=== PATIENT | female | born 1965 | race Caucasian/White ===

== ENCOUNTER → 2019-11-15 | Outpatient (CLI) | payer SELFPAY | PROVIDERS: Family Provider Family Medicine; Visit Provider Psychiatry & Neurology Neurology | DX: F41.1 Generalized anxiety disorder (principal); F33.2 Major depressive disorder, recurrent severe without psychotic features; F43.9 Reaction to severe stress, unspecified; F10.20 Alcohol dependence, uncomplicated ==

== ENCOUNTER → 2020-02-19 15:00 | Outpatient (BNVA) | payer MEDICARE, MEDICAID, SELFPAY | PROVIDERS: Family Provider Family Medicine; Visit Provider Psychiatry & Neurology Psychiatry | DX: F10.20 Alcohol dependence, uncomplicated (principal); F33.2 Major depressive disorder, recurrent severe without psychotic features; F41.1 Generalized anxiety disorder | CPT/HCPCS: 99204 ==

== ENCOUNTER → 2020-03-27 08:57 | Outpatient (BNVA) | payer MEDICARE, MEDICAID, SELFPAY | PROVIDERS: Family Provider Family Medicine; Visit Provider Psychiatry & Neurology Psychiatry | DX: F41.1 Generalized anxiety disorder (principal); F33.2 Major depressive disorder, recurrent severe without psychotic features; F10.20 Alcohol dependence, uncomplicated | CPT/HCPCS: 99213 ==

== ENCOUNTER 2020-04-13 20:28 | Emergency (ER) | payer MEDICARE, MEDICAID, SELFPAY ==
[2020-04-13 20:40] VITALS: BP 134/88; PULSE 92; RESP 14; TEMP 36.6; O2SAT 94; BMI 23.2
--- NOTE | 2020-04-13 21:26 | ED_ITS ---
HPI - Fall General: Chief Complaint: Fall Stated Complaint: fall/nose injury Time Seen by Provider: 04/13/20 21:22 History of Present Illness: HPI Narrative: Patient complains about pain to her nose with swelling. Onset (ago): hour(s) Fall from: standing Fall witnessed: yes, by bystander Place fall occurred: home Loss of consciousness: None Associated symptoms-after fall: Reports no associated symptoms; Denies abdominal pain, chest pain or headache(s) Review of Systems Const: Denies: fever(s), chills or body aches Eyes: Denies: change in vision or blurry vision ENMT: Reports: nasal congestion and other (Patient is nose hurt and has an abrasion to her nose this happens after a fall); Denies: throat pain Card: Denies: chest pain or dyspnea on exertion Resp: Denies: dyspnea, productive cough or non-productive cough GI: Denies: abdominal pain, nausea or vomiting Musc: Denies: extremity pain Skin/Breast: Denies: rash Neuro: Denies: headache(s) Psych: Denies: anxiety or depression Von/Lymph: Denies: easy bruising PFS ED PFSH: Medical History (Updated 04/13/20 @ 21:26 by YURI Barger) Dyspareunia 05/2019--->Pain with intercourse as well as decreased libido-- She is on several medications which can lead to vaginal dryness but certainly her age can be the source of the discomfort. Lubricants do help and she may continue using the [place] until further notice. We did discuss the use of vaginal estrogen and she has been on this before and is not opposed to restarting today. Rx: Estradiol 0.01% cream sent by Emiliana Graves for 340b--managed by myself She is instructed to use 2 g in the vagina every night for 7 nights then decreased to 1 g in the vagina 3 times a week. This will take 10-12 weeks of therapy before she starts to see any improvement and we will reevaluate the low libido at that time. - Large improvement in pain with estradiol vaginal cream. She has refills. Encouraged continued use 3x/week; coconut oil for lubricant and additional moisture. RTC: Nov 2019 for [employer] Surgical History (System 12/13/19 @ 12:43 by Reena Sheth) History of carpal tunnel surgery of left wrist (~04/2018) History of carpal tunnel surgery of right wrist (~01/2019) History of endometrial ablation (~05/13/09) 05/13/2009. Dysfunctional uterine bleeding. Jayne HTA. [facility] [place]. [place]. Reyes. History of foot surgery (~1977) Right foot, Repaired ligaments and tendons after foot cut. History of oophorectomy (~2008) Left History of salpingectomy (~05/13/09) Left ovarian cyst. Dyspareunia. Laparoscopic LSO, ALEM. [facility] [place]. Dr. Reyes History of spinal fusion History of tubal ligation (~1994) Hx of dilation and curettage (~05/13/09) Dysfunctional uterine bleeding. Hysteroscopy D&C. [facility] [place]. Dr. Reyes. 1991. D&C. Family History (System 12/13/19 @ 12:43 by Reena Sheth) Father Lung cancer Diabetes Heart disease Mother Breast cancer Hypertension Brother Hypertension Sister Hypertension Social History (System 12/13/19 @ 12:43 by Reena Sheth) Smoking and tobacco status: current every day smoker cigarettes Packs smoked per day: 1 [ Other cigarette details: Started smoking at age 12 ] Alcohol intake: current Desire information about substance/drug rehabilitation?: No (History of Cocaine use) Current occupational status: disabled Additional social history: Poorly balanced diet Physical Exam Const: COMMON NORMALS: no acute distress, average body habitus and patient oriented x3 HENMT: COMMON NORMALS: normocephalic HEAD & SCALP: normal to inspection and normocephalic FACE & SINUS: normal facial exam NOSE: Abnormal external nose present (Has an abrasion to left side of her nose) nasal deviation to the right, nasal tenderness, nasal abrasion and nasal swelling; septum not normal Eye: COMMON NORMALS: conjunctivae normal GENERAL EYE: appearance normal, both eyes and all related structures CONJUNCTIVA: Yes conjunctivae normal Neck/C-Spine: COMMON NORMALS: no JVD Chest: COMMONS NORMALS: normal inspection of the chest Resp: COMMON NORMALS: normal respiratory effort and clear to auscultation bilaterally AUSCULTATION: clear to auscultation bilaterally Cardio: COMMON NORMALS: no JVD, regular rate and regular rhythm RATE: regular rate RHYTHM: regular rhythm GI: COMMON NORMALS: Normal to inspection, nondistended, normoactive bowel sounds present Extremity: COMMON NORMALS: normal to inspection and full ROM Neuro: COMMON NORMALS: patient oriented x3 Course Vital Signs: Vital signs: Vital Signs Temperature 97.8 F 04/13/20 20:40 Pulse Rate 92 04/13/20 20:40 Respiratory Rate 14 04/13/20 20:40 Blood Pressure 134/88 04/13/20 20:40 Pulse Oximetry 94 04/13/20 20:40 Discharge Plan Discharge Patient Disposition: Home, Self-Care Clinical Impression: Contusion of nose Qualifiers: Encounter type: initial encounter Qualified Code(s): S00.33XA - Contusion of nose, initial encounter Condition: Stable Prescriptions: No Action Chantix 1 mg tablet 1 mg PO BID RF: 0 albuterol sulfate [ProAir HFA] 90 mcg/actuation HFA aerosol inhaler 2 puff INHALATION Q4H PRNRF: 0 Combivent Respimat 20-100 mcg/actuation mist 1 puff INHALATION BID RF: 0 duloxetine 30 mg capsule,delayed release(DR/EC) 30 mg PO DAILY Qty: 30 RF: 2 trazodone 100 mg tablet 200 mg PO .HS Qty: 60 RF: 2 estradiol 0.01 % (0.1 mg/gram) cream 1 gm VAGINAL .three times weekly 30 Days Qty: 42.5 RF: 2 Discharge Orders: Discharge Order (Routine); Ordered 04/13/20 Ordered By: Chuy Osborn Referrals: Kiko Wu MD [Primary Care Provider] - Discharge Diet: Usual diet Discharge Activity: Increase activity as tolerated Patient Instructions: Nasal Fracture (ED) Activity Restrictions/Additional Instructions: Can use Demetrius-Synephrine nose spray to help with the swelling you have ice the nose down follow-up with ear nose throat doc in 1 to 2 weeks if you want to nose to be reexamined and possibly strained out Coding Level of Care Code ED Parts Department Supervisor for [facility]
[2020-04-13 21:40] VITALS: BP 151/84; PULSE 91; RESP 14; O2SAT 98
== END 2020-04-13 21:40 | disposition home or self-care (01) ==
PROVIDERS: Emergency Provider Nurse Practitioner Family; PCP Family Medicine
DX: S00.33XA Contusion of nose, initial encounter (principal); W19.XXXA Unspecified fall, initial encounter; F17.210 Nicotine dependence, cigarettes, uncomplicated
CPT/HCPCS: 12345; 99281

== ENCOUNTER 2020-04-16 10:29 | Outpatient (CLI) | payer MEDICARE, MEDICAID, SELFPAY ==
[2020-04-16 11:13] LABS: Basophils % 0.6 %; Eosinophils # 0.1 10^3/uL (0.0-0.8); Eosinophils % 1.4 %; Hematocrit 48.1 % (37.0-47.0); Hemoglobin 15.5 g/dL (11.5-15.3); Lymphocytes # 2.3 10^3/uL (0.8-4.8); Lymphocytes % 31.5 %; Mean Corpuscular HGB Conc 32.2 g/dL (30.0-36.0); Mean Corpuscular Hemoglobin 28.9 pg (28.0-34.0); Mean Corpuscular Volume 89.6 fL (81-99); Mean Platelet Volume 9.3 fL (7.4-10.4); Monocytes # 0.7 10^3/uL (0.2-0.9); Monocytes % 9.9 %; Neutrophils # 4.1 10^3/uL (1.8-7.7); Neutrophils % 56.5 %; Nucleated Red Blood Cells % 0 %; Platelet Count 265 10^3/cmm (130-400); Red Blood Count 5.37 10^6/uL (4.1-5.3); Red Cell Distribution Width 13.7 % (12.1-15.1); White Blood Count 7.3 10^3/uL (4.0-10.0)
[2020-04-16 11:15] LABS: Anion Gap 17.4 (5-19); Blood Urea Nitrogen 9 mg/dL (6-20); Calcium 9.9 mg/dL (8.5-10.5); Carbon Dioxide 23 mmol/L (22-29); Chloride 106 mmol/L (98-107); Glomerular Filtration Rate 87.2 mL/min (90-130); Glucose 108 mg/dL (65-115); Osmolality Calculated 291 mOsm/kg (285-295); Potassium 4.4 mmol/L (3.5-5.1); Sodium 142 mmol/L (136-145)
== END 2020-04-16 10:30 | disposition home or self-care (01) ==
LOC: RT 10:35
PROVIDERS: PCP Family Medicine; Visit Provider Specialist
DX: Z01.810 Encounter for preprocedural cardiovascular examination (principal)
CPT/HCPCS: 80048; 85025

== ENCOUNTER 2020-06-01 08:12 | Day surgery (SDC) | payer MEDICARE, MEDICAID, SELFPAY ==
[2020-05-28 10:16] VITALS: BMI 23.2
--- NOTE | 2020-06-01 08:27 | P.ANESASSM_ITS ---
Pre-Anesthetic Assessment Pre-Anesthetic Assessment: Height/Weight: Height 1.55 m Weight 55.792 kg Preop Diagnosis: screening Proposed Procedure: Operation Date: 06/01/20 09:00 Proposed Procedures p Colonoscopy/30839 Z12.11(Not Applicable) - Hai Ibrahim MD Familial anesthetic complications: none Was Beta Roberto taken within 24 hours: N/A Social: Social History: Alcohol (3-4 drinks a day) and Tobacco Packs per day: 1-1.5 Exam: Pre-Anes Outpt Exam: alert, oriented x 3, clear to auscultation bilaterally and regular rate & rhythm Airway: Submandibular: WNL Cervical ROM: WNL MP: 1 Dentition: False Pulmonary: Pulmonary: COPD and Sleep apnea CV/HEM: CV/HEM: None reported : : None reported Hepatic: Hepatic: None reported GI: GI: None reported Metabolic: Metabolic: Thyroid (nodules) Musc/skel: Musc/skel: Fibromyalgia, Lower Back Pain and OA/DJD Neuropsych: Neuropsych: Anxiety and Depression Anesthetic Plan: ASA status: 3 Anesthesia: MAC Risk of > 500 ml blood loss (7ml/kg in children): No PFSH Anesthesia PFSH: Medical History Chronic back pain Dyspareunia Surgical History History of carpal tunnel surgery of left wrist (~04/2018) History of carpal tunnel surgery of right wrist (~01/2019) History of endometrial ablation (~05/13/09) 05/13/2009. Dysfunctional uterine bleeding. [place] [facility] [place]. History of foot surgery (~1977) Right foot, Repaired ligaments and tendons after foot cut. History of oophorectomy (~2008) Left History of salpingectomy (~05/13/09) Left ovarian cyst. Dyspareunia. Laparoscopic LSO, ALEM. [facility]. Dr. Reyes History of spinal fusion History of tubal ligation (~1994) Hx of dilation and curettage (~05/13/09) Dysfunctional uterine bleeding. [place]steroscopy [place] [facility] [place]. D&C. Family History Father Lung cancer Diabetes Heart disease Mother Breast cancer, Onset Age: 56 Hypertension Brother Hypertension Sister Hypertension Social History (Updated 05/14/20 @ 14:24 by RICH Kim) Smoking and tobacco status: current every day smoker cigarettes Packs smoked per day: 1 [ Other cigarette details: Started smoking at age 12 ] Alcohol intake: current Desire information about substance/drug rehabilitation?: No (History of Cocaine use) History of recent travel: No Additional social history: Poorly balanced diet Data Anesthesia Cardiac Studies: No Data to Display
[2020-06-01 08:31] VITALS: BP 134/87; PULSE 86; RESP 18; TEMP 36.7; O2SAT 98
[2020-06-01] MEDS: sodium chloride 0.9% 1,000 ML 30 ML IV (08:35)
--- NOTE | 2020-06-01 09:27 | W.PM.OPSUD ---
Surgery/Procedure H&P Update DATE OF PROCEDURE: June 01, 2020 DATE H&P PERFORMED: 05/14/20 PREOP DIAGNOSIS: screening PLANNED PROCEDURE: Operation Date: 06/01/20 09:00 Proposed Procedures p Colonoscopy/24390 Z12.11(Not Applicable) - Hai Ibrahim MD
[2020-06-01 09:53] VITALS: BP 112/84; PULSE 78; RESP 12; TEMP 36.1; O2SAT 98
--- NOTE | 2020-06-01 09:55 | ANE.PACU2 ---
Inpatient post-anesthesia follow up: Airway intact: Yes Vital signs: Temperature 98.1 F Pulse Rate 86 Respiratory Rate 18 Blood Pressure 134/87 Pulse Oximetry 98 Oxygen Delivery Me thod Room Air Oxygen Flow Rate Fraction of Inspir ed Oxygen Hydration adequate: Yes Nausea and vomiting: No Pain level: 1 Mental status: Baseline
[2020-06-01 10:11] VITALS: BP 126/74; PULSE 76; RESP 16; O2SAT 98
== END 2020-06-01 10:25 | disposition home or self-care (01) ==
PROVIDERS: PCP Family Medicine; Visit Provider Internal Medicine
PROC: 0DJD8ZZ Inspection of Lower Intestinal Tract, Via Natural or Artificial Opening Endoscopic (ICD-10-PCS; CPT 45378; principal; 2020-06-01 09:00)
DX: Z12.11 Encounter for screening for malignant neoplasm of colon (principal); D12.2 Benign neoplasm of ascending colon; D12.4 Benign neoplasm of descending colon; F17.210 Nicotine dependence, cigarettes, uncomplicated
CPT/HCPCS: 12345; 45385; 88305; J2704; J7030

== ENCOUNTER → 2020-06-18 07:47 | Outpatient (BNVA) | payer MEDICARE, MEDICAID, SELFPAY | PROVIDERS: PCP Family Medicine; Visit Provider Psychiatry & Neurology Psychiatry | DX: F41.1 Generalized anxiety disorder (principal); F33.2 Major depressive disorder, recurrent severe without psychotic features; F10.20 Alcohol dependence, uncomplicated | CPT/HCPCS: 99213 ==

== ENCOUNTER 2020-09-07 14:45 | Outpatient (CLI) | payer MEDICARE, MEDICAID, SELFPAY ==
--- NOTE | 2020-09-07 14:50 | MR_ITS ---
WS: [id number] MRI LUMBAR SPINE NONCONTRAST HISTORY: Low back pain. COMPARISON: 01/06/2010. TECHNIQUE: Sagittal and axial multisequence imaging is submitted. Posterior fusion hardware at 3 consecutive levels in the cervical spine. No cord compression. Disc pr otrusions at T6-7 and T7-8. Mild straightening of the normal lumbar lordosis. 2 mm retrolisthesis of L2. Moderate disc space narr owing and desiccation at L2-3 has mildly progressed. No acute marrow edema or fracture. Mild disc desiccation at the remaining levels. Conus terminates normally at L1-2 disc level. L1-L2: Normal. L2-L3: Diffuse annular disc bulging and a central disc protrusion. Small vertebral body osteophytes. Moderate bilateral foraminal stenosis and mild central stenosis. Fluid in the facet joints. L3-L4: Diffuse annular disc bulging with mild facet and ligamentum flavum hypertrophy. Moderate bilat eral foraminal stenosis due to the disc bulging and facet disease. L4-L5: Mild annular disc bulging with moderate facet and ligamentum flavum hypertrophy. Moderate cent ral, subarticular recess and mild bilateral foraminal narrowing. L5-S1: Mild annular disc bulging with mild encroachment into the subarticular recesses. Visualized retroperitoneum is negative. MR/MR lumbar spine wo con* [id number] IMPRESSION: 1. Moderate progression of degenerative disc disease and spondylosis since 201 0. 2. Moderate bilateral foraminal stenosis and mild central stenosis at L2-3 wit h a central disc protrusion. 3. Moderate bilateral foraminal stenosis at L3-4. 4. Moderate central, bilateral subarticular recess and mild foraminal stenosis at L4-5. 5. No acute fractures. 6. Additional central disc protrusions at T6-7 and T7-8.
--- NOTE | 2020-09-07 14:50 | XR_ITS ---
WS: [id number] LATERAL LUMBAR SPINE: 3 view. Lateral radiographs are performed in upright neutral, flexion and extension to the patient's toleranc e. HISTORY: LOW BACK PAIN COMPARISON: 05/29/2019 2 to 3 mm retrolisthesis of L2 and L3. No change with flexion or extension. Moderate to severe disc s pace narrowing and desiccation at L2-3. No fractures. Mild osteopenia. Facet joint arthritis is moder ate at L4-5 and L5-S1. Mild atherosclerosis aorta. XR/XR lumbar spine f/e only [id number] IMPRESSION: 1. No lumbar spine instability. 2. Moderate to severe degenerative disc disease at L2-3.
== END 2020-09-07 14:46 | disposition home or self-care (01) ==
LOC: RADWPI 14:48
PROVIDERS: PCP Family Medicine; Visit Provider Nurse Practitioner
DX: M54.5 Low back pain (principal); M48.061 Spinal stenosis, lumbar region without neurogenic claudication; M51.36 Other intervertebral disc degeneration, lumbar region; M47.819 Spondylosis without myelopathy or radiculopathy, site unspecified; M51.24 Other intervertebral disc displacement, thoracic region
CPT/HCPCS: 72120; 72148

== ENCOUNTER 2020-09-14 20:00 | Outpatient (CLI) | payer MEDICARE, MEDICAID, SELFPAY | END 2020-09-14 20:01 | disposition home or self-care (01) | LOC: SLEEP 09-15 09:45 | PROVIDERS: PCP Family Medicine; Visit Provider Nurse Practitioner Family | DX: G47.33 Obstructive sleep apnea (adult) (pediatric) (principal); R40.0 Somnolence | CPT/HCPCS: 95810 ==

== ENCOUNTER 2020-10-23 08:06 | Outpatient (CLI) | payer MEDICARE, MEDICAID, SELFPAY ==
--- NOTE | 2020-10-23 08:08 | US_ITS ---
WS: [id number] ULTRASOUND THYROID TECHNIQUE: Ultrasound of the thyroid. CLINICAL INFORMATION: MULTIPLE THYROID NODULES COMPARISON: September 10, 2019 FINDINGS: Thyroid: Right and left thyroid lobes are normal in size and echotexture. Multiple bilateral thyroid nodules similar in appearance to the prior examination. Incidental colloid cysts. Solid right lateral inferior thyroid nodule measuring 9.2 x 7.4 x 9.4 mm. This is new or more promine nt compared to previous. Remainder of the nodules are unchanged. Right thyroid lobe: 4.6 cm x 1.7 cm x 2.4 cm Left thyroid lobe: 4.8 cm x 1.6 cm x 1.6 cm. Isthmus: 0.5 mm. Cervical lymphadenopathy: None. US/US thyroid [id number] IMPRESSION: 1. Solid right inferior thyroid nodule measuring 9.2 x 7.4 x 9.4 mm is new or more prominent compared to previous. 2. Remainder of the small bilateral nodules are unchanged. Recommend continued annual surveillance.
== END 2020-10-23 08:07 | disposition home or self-care (01) ==
LOC: US 08:07
PROVIDERS: PCP Family Medicine; Visit Provider Nurse Practitioner Family
DX: E04.2 Nontoxic multinodular goiter (principal)
CPT/HCPCS: 76536

== ENCOUNTER 2020-12-13 14:10 | Emergency (ER) | payer MEDICARE, MEDICAID, SELFPAY ==
[2020-12-13 14:19] VITALS: BP 137/76; PULSE 80; RESP 14; TEMP 36.8; O2SAT 95; BMI 22.6
--- NOTE | 2020-12-13 14:30 | XRR_ITS ---
PROCEDURE INFORMATION: Exam: XR Right Hand Exam date and time: 12/13/2020 2:41 PM Age: 55 years old Clinical indication: Injury or trauma; Other: Cut; Laceration; Finger; Right; Thumb; Additional info: Cut thumb TECHNIQUE: Imaging protocol: XR Right hand. Views: 3 or more views. COMPARISON: No relevant prior studies available. FINDINGS: Bones/joints: Negative for acute bony abnormality. Soft tissues: Negative for soft tissue metallic foreign bodies are seen in the thumb. Mild soft tissue effusion is present in the ventral and distal aspect of the thumb. XR/XR hand RT min 3V* [id number] IMPRESSION: 1. No acute bone abnormality. 2. Negative for soft tissue foreign body in the thumb 3. Mild soft tissue edema in the thumb
--- NOTE | 2020-12-13 14:35 | W.ED.WOUNDLC ---
HPI - Wound/Laceration General: Chief Complaint: Wound/Laceration Stated Complaint: R THUMB LAC W/KNIFE Time Seen by Provider: 12/13/20 14:18 History of Present Illness: HPI narrative: Patient cut right thumb with a potato slicer at 0 800 this morning was able to finally get a ride into the ER. Bleeding is stopped Onset (ago): hour(s) Extremity Location: Right: hand Place: home Patient tetanus UTD: Yes Context: accidental Associated symptoms: Reports no associated symptoms; Denies chills or fever(s) Review of Systems Const: Denies: fever(s) or chills Skin/Breast: Reports: other (Laceration right thumb) Psych: Denies: anxiety PFSH ED PFSH: Medical History Chronic back pain Dyspareunia Surgical History History of carpal tunnel surgery of left wrist (~04/2018) History of carpal tunnel surgery of right wrist (~01/2019) History of endometrial ablation (~05/13/09) 05/13/2009. Dysfunctional uterine bleeding. [place]ne [place] [facility] [place]. History of foot surgery (~1977) Right foot, Repaired ligaments and tendons after foot cut. History of oophorectomy (~2008) Left History of salpingectomy (~05/13/09) Left ovarian cyst. Dyspareunia. Laparoscopic LSO, ALEM. [facility]. Dr. Reyes History of spinal fusion History of tubal ligation (~1994) Hx of dilation and curettage (~05/13/09) Dysfunctional uterine bleeding. [place]steroscopy [place] [facility] [place]. [place]. D&C. Family History Father Lung cancer Diabetes Heart disease Mother Breast cancer, Onset Age: 56 Hypertension Brother Hypertension Sister Hypertension Social History (Updated 05/14/20 @ 14:[address]) Smoking and tobacco status: current every day smoker cigarettes Packs smoked per day: 1 [ Other cigarette details: Started smoking at age 12 ] Alcohol intake: current Desire information about substance/drug rehabilitation?: No (History of Cocaine use) History of recent travel: No Current gender identity: Female Additional social history: Poorly balanced diet Physical Exam Const: COMMON NORMALS: no acute distress Psych: COMMON NORMALS: mental status grossly normal Skin: OTHER: Right thumb with a laceration to the corner nailbed on the lateral aspect and into the fat pad of the thumb cut is well aligned and together no active bleeding Procedures Laceration Laceration 1: Site: hand Side (If applicable): right Size (cm): 3 Description: irregular and clean Depth: simple, single layer Pre-repair: wound explored Skin layer closed with: other (Skin adhesive and Steri-Strips) Course Vital Signs: Vital signs: Vital Signs Temperature 98.2 F 12/13/20 14:19 Pulse Rate 80 12/13/20 14:19 Respiratory Rate 14 12/13/20 14:19 Blood Pressure 137/76 12/13/20 14:19 Pulse Oximetry 95 12/13/20 14:19 Discharge Plan Discharge Condition: Good Prescriptions: No Action lisinopril 10 mg tablet 10 mg PO DAILY RF: 0 albuterol sulfate [ProAir HFA] 90 mcg/actuation HFA aerosol inhaler 2 puff INHALATION Q4H PRN (Reason: Shortness Of Breath Or Wheezing) RF: 0 Combivent Respimat 20-100 mcg/actuation mist 1 puff INHALATION BID RF: 0 duloxetine 60 mg capsule,delayed release(DR/EC) 60 mg PO DAILY Qty: 30 RF: 2 trazodone 100 mg tablet 200 mg PO .HS Qty: 60 RF: 2 estradiol 0.01 % (0.1 mg/gram) cream 1 gm VAGINAL .three times weekly 30 Days Qty: 42.5 RF: 2 Coding Level of Care Code ED Regional Construction Manager for [facility] Thomson
== END 2020-12-13 15:02 | disposition home or self-care (01) ==
PROVIDERS: Emergency Provider Nurse Practitioner Family; PCP Family Medicine
DX: S61.111A Laceration without foreign body of right thumb with damage to nail, initial encounter (principal); W26.0XXA Contact with knife, initial encounter; Y92.019 Unspecified place in single-family (private) house as the place of occurrence of the external cause
CPT/HCPCS: 12002; 12345; 73130; 99281; 99282

== ENCOUNTER → 2020-12-15 09:17 | Outpatient (BNVA) | payer MEDICARE, MEDICAID, SELFPAY | PROVIDERS: PCP Family Medicine; Visit Provider Psychiatry & Neurology Psychiatry | DX: F41.1 Generalized anxiety disorder (principal); F33.2 Major depressive disorder, recurrent severe without psychotic features; F10.20 Alcohol dependence, uncomplicated | CPT/HCPCS: 99214 ==

== ENCOUNTER 2020-12-17 15:07 | Emergency (ER) | payer MEDICARE, MEDICAID, SELFPAY ==
[2020-12-17 15:16] VITALS: BP 183/94; PULSE 77; RESP 18; TEMP 36.7; O2SAT 98; BMI 22.8
--- NOTE | 2020-12-17 15:23 | ED_ITS ---
HPI - Recheck/Abnormal Lab/Rx General: Chief Complaint: Extremity Injury, Upper Stated Complaint: Rt hand lac Time Seen by Provider: 12/17/20 15:19 Source: patient Mode of arrival: ambulatory Limitations: no limitations History of Present Illness: HPI narrative: Patient is a 55-year-old female presents to ED today for evaluation of her left thumb laceration that she sustained 4 days ago after cutting it on a potato slicer. Patient was seen here at our facility and had the laceration glued and Steri-Stripped. She states she is concerned because her Steri-Strips fell off. She has not had any redness or discharge or increased pain. MD complaint: wound re-check and delayed primary closure Onset/Timin Initial visit (ago): day(s) Returns today for: wound recheck Associated symptoms: none Review of Systems Skin/Breast: Reports: other (laceration to R thumb) Neuro: Denies: numbness in extremities or sensory changes PFS ED PFSH: Medical History (Updated 12/17/20 @ 15:24 by MACO Santizo) Chronic back pain Dyspareunia Surgical History History of carpal tunnel surgery of left wrist (~04/2018) History of carpal tunnel surgery of right wrist (~01/2019) History of endometrial ablation (~05/13/09) 05/13/2009. Dysfunctional uterine bleeding. [place] [facility] [place]. History of foot surgery (~1977) Right foot, Repaired ligaments and tendons after foot cut. History of oophorectomy (~2008) Left History of salpingectomy (~05/13/09) Left ovarian cyst. Dyspareunia. Laparoscopic LSO, ALEM. [facility]. Dr. Reyes History of spinal fusion History of tubal ligation (~1994) Hx of dilation and curettage (~05/13/09) Dysfunctional uterine bleeding. Hysteroscopy [place] [facility] [place]. [place]. D&C. Family History Father Lung cancer Diabetes Heart disease Mother Breast cancer, Onset Age: 56 Hypertension Brother Hypertension Sister Hypertension Social History (Updated 05/14/20 @ 14:24 by RICH Kim) Smoking and tobacco status: current every day smoker cigarettes Packs smoked per day: 1 [ Other cigarette details: Started smoking at age 12 ] Alcohol intake: current Desire information about substance/drug rehabilitation?: No (History of Cocaine use) History of recent travel: No Current gender identity: Female Additional social history: Poorly balanced diet Physical Exam Extremity: GENERAL: Yes normal exam except as noted OTHER: healing flap laceration to R distal thumb; laceration does involve corner of nail; there is no redness, swelling, discharge, or odor; wound is healing normally Course Vital Signs: Vital signs: Vital Signs Temperature 98.0 F 12/17/20 15:16 Pulse Rate 77 12/17/20 15:16 Respiratory Rate 18 12/17/20 15:16 Blood Pressure 183/94 12/17/20 15:16 Pulse Oximetry 98 12/17/20 15:16 MDM - Recheck/Abnormal Lab/Rx MDM Narrative: Medical decision making narrative: I told patient at this time laceration needs to heal by secondary intent. There is no need to re-glue or Steri-Strips or stitch at this time. Wound care discussed with patient. Return to ED precautions given. Discharge Plan Discharge Patient Disposition: Home Clinical Impression: Laceration of right thumb Qualifiers: Encounter type: subsequent encounter Damage to nail status: with damage Foreign body presence: without foreign body Qualified Code(s): S61.111D - Laceration without foreign body of right thumb with damage to nail, subsequent encounter Condition: Stable Prescriptions: No Action hydrocodone-acetaminophen 5-325 mg tablet 1 tab PO BID RF: 0 Chantix Starting Month Box 0.5 mg (11)- 1 mg (42) tablets,dose pack See Rx Instructions PO PER PKG DIR Qty: 53 RF: 0 mirtazapine 15 mg tablet 15 mg PO .HS Qty: 30 RF: 2 lisinopril 10 mg tablet 10 mg PO DAILY RF: 0 albuterol sulfate [ProAir HFA] 90 mcg/actuation HFA aerosol inhaler 2 puff INHALATION Q4H PRN (Reason: Shortness Of Breath Or Wheezing) RF: 0 Combivent Respimat 20-100 mcg/actuation mist 1 puff INHALATION BID RF: 0 estradiol 0.01 % (0.1 mg/gram) cream 1 gm VAGINAL .three times weekly 30 Days Qty: 42.5 RF: 2 Discharge Orders: Discharge ED (Routine); Ordered 12/17/20 Ordered By: Fidelina Pierre Referrals: Kiko Wu MD [Primary Care Provider] - Coding Level of Care Code ED Management Psychologist for [facility] Thomson
== END 2020-12-17 15:28 | disposition home or self-care (01) ==
PROVIDERS: Emergency Provider Physician Assistant; PCP Family Medicine
DX: S61.111A Laceration without foreign body of right thumb with damage to nail, initial encounter (principal); W26.0XXA Contact with knife, initial encounter; F17.210 Nicotine dependence, cigarettes, uncomplicated
CPT/HCPCS: 12345; 99281

== ENCOUNTER 2021-06-21 11:26 | Outpatient (CLI) | payer MEDICARE, MEDICAID, SELFPAY ==
--- NOTE | 2021-06-21 11:30 | MM_ITS ---
WS: [id number] BILATERAL DIGITAL SCREENING MAMMOGRAM WITH CAD CLINICAL INFORMATION: Z12.39 - Encounter for other screening for malignant neop... HISTORY: Screening mammogram. No current complaints. COMPARISON: TECHNIQUE: Bilateral CC and MLO. FINDINGS: The breast are composed of extremely dense tissue, which can limit the detection of small underlying mass lesions. Ovoid 11 mm density posterior depth right breast along the posterior nipple line. Recom mend spot compression views and ultrasound for further evaluation. Unremarkable and unchanged left breast. MM/[place] [id number] IMPRESSION: BI-RADS: 0-Incomplete: Need additional imaging evaluation FOLLOW UP: Need Additional Imaging RECOMMEND RIGHT BREAST DIAGNOSTIC MAMMOGRAPHY AND ULTRASOUND FOR FURTHER EVALUA TION.
== END 2021-06-21 11:27 | disposition home or self-care (01) ==
LOC: RADSHAW 11:32
PROVIDERS: PCP Family Medicine; Visit Provider Nurse Practitioner Women's Health
DX: Z12.31 Encounter for screening mammogram for malignant neoplasm of breast (principal)
CPT/HCPCS: 77067

== ENCOUNTER 2021-07-16 12:32 | Outpatient (CLI) | payer MEDICARE, MEDICAID, SELFPAY ==
--- NOTE | 2021-07-16 12:49 | US_ITS ---
WS: [id number] ADDITIONAL VIEWS RIGHT BREAST RIGHT breast ultrasound, limited HISTORY: ABNORMAL MAMMOGRAM RT BREAST COMPARISON: 06/21/2021 and 12/04/2013 Compression views right CC and MLO projection. True ML also submitted. 10 x 8 mm partially obscured nodule at 12-1 o'clock of the RIGHT breast persists in the posterior dep th. No calcifications or distortion. RIGHT breast ultrasound, limited. Hypoechoic mass at 12:00, 2 cm from nipple corresponds to the mammographic abnormality. Mass measures 0.9 x 1.0 x 0.6 cm and is slightly lobulated. There is minimal through transmission. No increased va scularity. US/US breast RT limited* [id number] IMPRESSION: BI-RADS: 4-Suspicious Finding-Biopsy Should Be Considered FOLLOW-UP: Biopsy Recommended Favor this is probably a complex cyst within the RIGHT breast. As it is not a s imple cyst recommend aspiration or core needle biopsy if this complex mass does not aspirate. Notified Mee Ferris NP at 07/16/2021 1:32 PM.
== END 2021-07-16 12:33 | disposition home or self-care (01) ==
PROVIDERS: PCP Family Medicine; Visit Provider Nurse Practitioner Family
DX: R92.8 Other abnormal and inconclusive findings on diagnostic imaging of breast (principal); N64.89 Other specified disorders of breast
CPT/HCPCS: 76642; 77065

== ENCOUNTER 2021-08-03 07:43 | Outpatient (CLI) | payer MEDICARE, MEDICAID, SELFPAY ==
--- NOTE | 2021-08-03 08:01 | US_ITS ---
WS: [id number] ULTRASOUND-GUIDED RIGHT BREAST BIOPSY HISTORY: R BREAST MASS COMPARISON: 07/16/2021 and 2020 Procedure, risks and complications are explained to the patient. Medications are reviewed. Consent is obtained. The mass in the RIGHT breast is localized with ultrasound. Mass localizes to 12:00. Skin is cleansed with ChloraPrep and anesthetized with 1% buffered lidocaine. Small dermatome is made. Under sterile c onditions mass is biopsied with a 14-gauge Achieve needle. 2 core biopsies are performed. Material pl aced in formalin and sent to pathology for review. No complications encountered. Breast tissue marker ([email or web address] ultrasound enhanced ribbon): Single. Patient left the radiology suite with no complications. Patient is instructed [place] [facility] [place] [facility] with any concerns. US/[place] [id number] IMPRESSION: 1. Uncomplicated core needle biopsy RIGHT breast mass at 12:00. Mass partially collapses after the first and second biopsies. Likely a complex cyst. PATHOLOGY: Benign fibrocystic changes with stromal sclerosis. No malignancy. Co rrelates with the imaging findings. RECOMMENDATION: Diagnostic RIGHT mammogram 6 months.
== END 2021-08-03 07:44 | disposition home or self-care (01) ==
LOC: RAD 07:48
PROVIDERS: PCP Family Medicine; Visit Provider Nurse Practitioner Family
DX: N63.15 Unspecified lump in the right breast, overlapping quadrants (principal); N64.89 Other specified disorders of breast
CPT/HCPCS: 19083; 88305

== ENCOUNTER 2021-12-09 12:08 | Outpatient (CLI) | payer MEDICARE, MEDICAID, SELFPAY ==
[2021-12-09 12:19] VITALS: BP 148/78; PULSE 78; RESP 18; TEMP 36.5; O2SAT 98
[2021-12-09 12:20] VITALS: BMI 21.5
[2021-12-09 13:00] VITALS: BP 126/76; PULSE 57; RESP 16; TEMP 36.5; O2SAT 97
[2021-12-09 14:05] VITALS: BP 131/82; PULSE 71; RESP 16; TEMP 36.5; O2SAT 97
== END 2021-12-09 12:09 | disposition home or self-care (01) ==
PROVIDERS: PCP Family Medicine; Visit Provider Nurse Practitioner Family
DX: U07.1 COVID-19 (principal)
CPT/HCPCS: 96365

== ENCOUNTER 2022-06-07 17:57 | Emergency (ER) | payer MEDICAID, SELFPAY ==
[2022-06-07 18:51] VITALS: BP 131/74; PULSE 76; RESP 18; TEMP 37; O2SAT 95; BMI 21.1
--- NOTE | 2022-06-07 18:58 | XRR_ITS ---
PROCEDURE INFORMATION: Exam: XR Right Elbow Exam date and time: 06/07/2022 7:53 PM Age: 56 years old Clinical indication: Pain; Upper arm; Right; Additional info: Fall, pain TECHNIQUE: Imaging protocol: Radiologic exam of the Right elbow. Views: 3 or more views. COMPARISON: No relevant prior studies available. FINDINGS: Bones/joints: Positive anterior and posterior fat pads consistent with intra-articular fracture and/or post traumatic joint effusion. Oblique nondisplaced intra-articular fracture involving the lateral half of the radial head. Soft tissues: Normal. XR/XR elbow RT min 3V* [id number] IMPRESSION: 1. Positive anterior and posterior fat pads consistent with intra-articular fracture and/or post traumatic joint effusion. 2. Oblique nondisplaced intra-articular fracture involving the lateral half of the radial head.
--- NOTE | 2022-06-07 18:58 | XRR_ITS ---
PROCEDURE INFORMATION: Exam: XR Right Humerus Exam date and time: 06/07/2022 7:53 PM Age: 56 years old Clinical indication: Pain; Upper arm; Right; Additional info: Fall, distal pain TECHNIQUE: Imaging protocol: Radiologic exam of the Right humerus. Views: 2 or more views. COMPARISON: No relevant prior studies available. FINDINGS: Bones/joints: Normal. Soft tissues: Normal. XR/[place] [id number] IMPRESSION: No acute findings.
--- NOTE | 2022-06-07 20:36 | ED_ITS ---
HPI - Extremity Problem General: Chief complaint: Extremity Injury, Upper Stated complaint: Fall/ arm injury Time Seen by Provider: 06/07/22 20:33 History of Present Illness: 56-year-old female slipped on the grass tonight causing her to fall and injure her right elbow. Patient has pain with extension of the right elbow. Minimal to no swelling is noted. Distal pulses and sensation are intact. Review of Systems General: Reports: 10 or more systems reviewed and unremarkable except in HPI and below Musc: Reports: joint pain (Right elbow pain) PFSH ED PFSH: Medical History (Updated 06/07/22 @ 20:48 by YURI Durant) Chronic back pain Dyspareunia History of nonmelanoma skin cancer Surgical History (Updated 05/07/21 @ 15:36 by Priscilla Gomez APN, SHANEL) H/O colonoscopy (~2019) Ibrahim: negative History of appendectomy with tubal ligation History of carpal tunnel surgery of left wrist (~04/2018) History of carpal tunnel surgery of right wrist (~01/2019) History of endometrial ablation (~05/13/09) 05/13/2009. Dysfunctional uterine bleeding. [place] [facility] [place] History of foot surgery (~1977) Right foot, Repaired ligaments and tendons after foot cut. History of oophorectomy (~2008) Left History of salpingectomy (~05/13/09) Left ovarian cyst. Dyspareunia. Laparoscopic LSO, ALEM. [facility]. Dr. Reyes History of spinal fusion History of tubal ligation (~1994) Hx of dilation and curettage (~05/13/09) Dysfunctional uterine bleeding. Hysteroscopy [place] [facility] [place]. [place]. D&C. Family History Father Lung cancer Diabetes Heart disease Mother Breast cancer, Onset Age: 56 Hypertension Brother Hypertension Sister Hypertension Social History Smoking and tobacco status: current every day smoker cigarettes Packs smoked per day: 1 [ Other cigarette details: Started smoking at age 12] Alcohol intake: current Desire information about substance/drug rehabilitation?: No (History of Cocaine use) History of recent travel: No Current gender identity: Female Additional social history: Poorly balanced diet Physical Exam Const: COMMON NORMALS: alert HENMT: COMMON NORMALS: atraumatic HEAD & SCALP: atraumatic Neck/C-Spine: CERVICAL SPINE: Yes cervical ROM normal and No Cervical spine tenderness Resp: COMMON NORMALS: normal respiratory effort Cardio: COMMON NORMALS: regular rate RATE: regular rate Back/Pelvis: COMMON NORMALS: thoracic and lumbar spine normal to inspection Extremity: RIGHT UPPER EXTREMITY: Yes elbow joint (Posterior tenderness, minimal swelling, decreased range of motion due to pa) Right elbow: Yes inspection, Yes palpation and Yes ROM Neuro: SENSORIUM/ORIENTATION: Yes alert Skin: COMMON NORMALS: no rashes or lesions noted GENERAL SKIN EXAM: no rashes or lesions noted Course Vital Signs: Vital signs: Vital Signs Temperature 98.6 F 06/07/22 18:51 Pulse Rate 76 06/07/22 18:51 Respiratory Rate 18 06/07/22 18:51 Blood Pressure 131/74 06/07/22 18:51 Pulse Oximetry 95 06/07/22 18:51 MDM - Extremity (Nontraumatic) Medical Decision Making 56-year-old female comes in today for injury to the right elbow. On exam she has tenderness and decreased range of motion to the elbow. Distal pulses and sensation are intact. Differential diagnosis includes fracture, sprain, contusion. X-ray notes a radial head fracture. Reviewed exam with patient with recommendations for treatment and follow-up with orthopedics. Case management was requested for orthopedic follow-up. Lab Data Radiology Impressions Elbow X-Ray 06/07/22 18:58 IMPRESSION: 1. Positive anterior and posterior fat pads consistent with intra-articular fracture and/or post traumatic joint effusion. 2. Oblique nondisplaced intra-articular fracture involving the lateral half of the radial head. Humerus X-Ray 06/07/22 18:58 IMPRESSION: No acute findings. Discharge Plan Discharge Patient Disposition: Home Clinical Impression: Right radial head fracture Condition: Stable Prescriptions: No Action hydrocodone-acetaminophen 5-325 mg tablet 1 tab PO BID 0RF albuterol sulfate [ProAir HFA] 90 mcg/actuation HFA aerosol inhaler 2 puff INHALATION Q4H PRN (Reason: Shortness Of Breath Or Wheezing) 0RF valsartan 160 mg Tablet 160 mg PO DAILY 0RF bupropion HCl 150 mg Tablet Sustained-Release 12 Hr 150 mg PO DAILY 0RF Discharge Orders: Discharge ED (Routine); Ordered 06/07/22 Ordered By: Guy Sheppard Referrals: Kiko Wu MD [Primary Care Provider] - Discharge Diet: Usual diet Discharge Activity: Limit activity as instructed Patient Instructions: Elbow Fracture (ED) Activity Restrictions/Additional Instructions: Limit activity to the right elbow. Use acetaminophen and ibuprofen to control pain. Use hydrocodone for severe pain. Follow-up with orthopedics office for further evaluation and treatment. Return to ER for new concerns. Coding Level of Care Code ED Elevator Serviceman for Shelbi Thomson
--- NOTE | 2022-06-08 14:10 | DCPLANNER ---
Addendum entered by Lilli Rivas 06/14/22 15:33: Patient had a follow up appointment scheduled for 06.09.22 with ortho - patient did attend appointment. Original Note: travel agency manager had message to schedule a follow up appointment for patient with ortho. travel agency manager sent patients information to the front office staff at ortho. Patients information will be printed and reviewed. Clinic will call patient with appointment information.
== END 2022-06-07 22:07 | disposition home or self-care (01) ==
PROVIDERS: Emergency Provider Nurse Practitioner Family; PCP Family Medicine
DX: S52.124A Nondisplaced fracture of head of right radius, initial encounter for closed fracture (principal); W01.0XXA Fall on same level from slipping, tripping and stumbling without subsequent striking against object, initial encounter; F17.210 Nicotine dependence, cigarettes, uncomplicated
CPT/HCPCS: 73060; 73080; 99283

== ENCOUNTER → 2022-06-09 10:08 | Outpatient (BNVA) | payer MEDICAID, SELFPAY | PROVIDERS: Visit Provider Specialist | DX: S52.121A Displaced fracture of head of right radius, initial encounter for closed fracture (principal); W01.0XXA Fall on same level from slipping, tripping and stumbling without subsequent striking against object, initial encounter | CPT/HCPCS: 24650; 99203 ==

== ENCOUNTER 2022-06-09 13:30 | Outpatient (CLI) | payer MEDICAID, SELFPAY | END 2022-06-09 13:31 | disposition home or self-care (01) | LOC: SPT 13:30 | PROVIDERS: Visit Provider Specialist | DX: Z46.89 Encounter for fitting and adjustment of other specified devices (principal); S52.121D Displaced fracture of head of right radius, subsequent encounter for closed fracture with routine healing; X58.XXXD Exposure to other specified factors, subsequent encounter | CPT/HCPCS: 97760; L3761 ==

== ENCOUNTER 2022-06-28 08:46 | Outpatient (CLI) | payer MEDICAID, SELFPAY ==
--- NOTE | 2022-06-28 09:02 | MM_ITS ---
WS: [id number] DIAGNOSTIC BILATERAL DIGITAL BREAST TOMOSYNTHESIS MAMMOGRAPHY WITH CAD HISTORY: Follow-up RIGHT breast mass at 12:00. Benign pathology. COMPARISON: 08/03/2021, 07/16/2021 and 06/21/2021 TECHNIQUE: Bilateral craniocaudad, mediolateral oblique, and mediolateral views are submitted with to moschantel and ENEIDA. Computer aided detection utilized. Breast composition: The breasts are heterogeneously dense, which may obscure small masses. Biopsy cli p is noted near the 12:00 location of the anterior breast. This is removed from the previously descri bed mass at 12:00 which could be due to clip migration. The mass now measures 6 x 5 mm and has decrea sed in size. No ultrasound was ordered today to further evaluate this mass. LEFT breast is negative. MM/[place] [id number] IMPRESSION: BI-RADS: 0-Incomplete: Need additional imaging evaluation FOLLOW UP: Need Additional Imaging Recommend ultrasound evaluation of a slightly lobulated mass RIGHT breast at 12 :00 along the posterior chest wall which now measures 6 x 5 x 8 mm. This has de creased in size and is probably benign. The biopsy clip is more anterior with r espect to this mass. Recommend evaluation for possible 2 masses at the 12:00 ax is. One more anteriorly and one posteriorly against the chest wall.
== END 2022-06-28 08:47 | disposition home or self-care (01) ==
LOC: RAD 08:49
PROVIDERS: Visit Provider Nurse Practitioner Women's Health
DX: R92.8 Other abnormal and inconclusive findings on diagnostic imaging of breast (principal); N63.15 Unspecified lump in the right breast, overlapping quadrants
CPT/HCPCS: 77062

== ENCOUNTER → 2022-07-04 08:27 | Outpatient (BNVA) | payer MEDICAID, SELFPAY | PROVIDERS: Referring Provider Nurse Practitioner Family; Visit Provider Specialist | DX: M53.3 Sacrococcygeal disorders, not elsewhere classified (principal); M25.551 Pain in right hip; M25.552 Pain in left hip | CPT/HCPCS: 73523; 99213 ==

== ENCOUNTER → 2022-07-11 09:35 | Outpatient (BNVA) | payer MEDICAID, SELFPAY | PROVIDERS: Visit Provider Specialist | DX: S52.121D Displaced fracture of head of right radius, subsequent encounter for closed fracture with routine healing (principal); X58.XXXD Exposure to other specified factors, subsequent encounter | CPT/HCPCS: 73080; 99213 ==

== ENCOUNTER 2022-07-19 07:39 | Outpatient (CLI) | payer MEDICAID, SELFPAY ==
--- NOTE | 2022-07-19 07:45 | US_ITS ---
WS: [id number] ULTRASOUND RIGHT BREAST HISTORY: Follow-up RIGHT breast mass at 12:00. COMPARISON: 06/28/2022, 08/03/2021, 07/16/2021 TECHNIQUE: 2-D and Doppler. Previously biopsied mass is identified measuring 8 x 4 x 5 mm at 12:00, 2 cm from the nipple. This ma ss became less apparent on the prior biopsy. This is still smaller than the original measurements. No additional mass or abnormality. The biopsy clip is not identified within the mass. US/US breast RT limited* [id number] IMPRESSION: BI-RADS: 3-Probably Benign FOLLOW-UP: 6 Month Follow-up Previously biopsied mass at 12:00, 2 cm from the nipple is reidentified. Mass h as slightly increased in size postbiopsy. The biopsy pathology was benign. No a dditional mass is identified. As there has been a slight change since the biops y recommended 6 month follow-up. Still favor this is probably benign.
== END 2022-07-19 07:40 | disposition home or self-care (01) ==
LOC: RAD 07:41
PROVIDERS: Visit Provider Nurse Practitioner Women's Health
DX: N63.15 Unspecified lump in the right breast, overlapping quadrants (principal)
CPT/HCPCS: 76642

== ENCOUNTER → 2022-11-04 16:15 | Outpatient (BNVA) | payer MEDICAID, SELFPAY | PROVIDERS: Visit Provider Family Medicine | DX: Z23 Encounter for immunization (principal); J44.9 Chronic obstructive pulmonary disease, unspecified; I10 Essential (primary) hypertension; Z86.39 Personal history of other endocrine, nutritional and metabolic disease | CPT/HCPCS: 80053; 80061; 84443; 85025 ==

== ENCOUNTER 2022-12-03 11:57 | Emergency (ER) | payer MEDICAID, SELFPAY ==
[2022-12-03 12:19] VITALS: BP 127/80; PULSE 93; RESP 20; TEMP 36.8; O2SAT 97
--- NOTE | 2022-12-03 12:43 | ED_ITS ---
HPI - Fall General: Chief Complaint: Fall Stated Complaint: fall, Tailbone injury Time Seen by Provider: 12/03/22 12:31 History of Present Illness: Patient is a 57-year-old female who presents to the emergency department with complaints of pain after a fall from standing. Patient only has the event recorded. The video shows the patient walking out the front door, slipping on ice as she walked down 2 stairs. She landed on her rear end on the edge of a step. It does not appear that she struck her head. Initially she said she was dazed and saw spots. Patient is not anticoagulated. Primary concern is her buttocks. She denies any saddle paresthesias, denies any loss of bowel or bladder control, denies any pain, numbness or tingling into the lower extremity Associated symptoms-after fall: Denies abdominal pain, chest pain, confusion, di fficulty walking, headache(s), hematuria or neck pain Review of Systems General: Reports: 10 or more systems reviewed and unremarkable except in HPI and below Const: Denies: fever(s), chills, change in appetite, change in weight, fatigue or malaise Eyes: Denies: change in vision, eye discomfort, eye discharge or eye redness ENMT: Denies: throat pain, enlarged tonsils, odynophagia, hoarseness, ear or mastoid pain, ear discharge, change in hearing, tinnitus, nasal discharge, nasal congestion, post nasal drip or sinus pain Card: Denies: chest pain, palpitations, irregular heart rhythm, edema, dyspnea on exertion, orthopnea or leg pain with exertion Resp: Denies: dyspnea, productive cough, non-productive cough, wheezing, stridor or chest congestion GI: Denies: abdominal pain, nausea, vomiting, dysphagia, diarrhea, constipation, bloating, GI cramping or hematochezia : Denies: flank pain, difficulty voiding, dysuria, urinary frequency, urinary urgency, urinary hesitancy, oliguria or hematuria Musc: Denies: neck pain, back pain, extremity pain, joint pain, joint swelling, joint redness, joint warmth or muscle weakness Skin/Breast: Denies: rash, pruritus, erythema, photosensitivity or new lesions Neuro: Denies: headache(s), numbness in extremities, weakness in extremities, sensory changes, lack of coordination, difficulty walking, frequent falls, dizziness, confusion, Slurred speech present, difficulty communicating thoughts, seizure-like activity or involuntary movements Endo: Denies: polyuria, polydipsia or tired all the time Von/Lymph: Denies: easy bruising or easy bleeding PFSH ED PFSH: Medical History (Updated 12/03/22 @ 16:56 by REY Cameron) Chronic back pain Dyspareunia H/O thyroid nodule History of nonmelanoma skin cancer Hypertension No pertinent past medical history negxhx: dm,dvt/pe PCP: None Surgical History H/O colonoscopy (~2019) Ibrahim: negative History of appendectomy with tubal ligation History of carpal tunnel surgery of left wrist (~04/2018) History of carpal tunnel surgery of right wrist (~01/2019) History of endometrial ablation (~05/13/09) 05/13/2009. Dysfunctional uterine bleeding. Jayne HTA. [facility] [place] Re[place]. History of foot surgery (~1977) Right foot, Repaired ligaments and tendons after foot cut. History of oophorectomy (~2008) Left History of salpingectomy (~05/13/09) Left ovarian cyst. Dyspareunia. Laparoscopic LSO, ALEM. [facility]. Dr. Reyes History of spinal fusion History of tubal ligation (~1994) Hx of dilation and curettage (~05/13/09) Dysfunctional uterine bleeding. Hysteroscopy D&C. [facility] [place]. Reyes. 1990. D&C. Right radial head fracture Family History (Updated 11/04/22 @ 14:52 by Roselyn Davila LPN) Father Lung cancer Diabetes Heart disease Hypertension Stroke CAD (coronary artery disease) Cancer melanoma Hyperlipidemia Mother Breast cancer dx age 56 Hypertension Hyperlipidemia Brother Hypertension Sister Hypertension Cancer cervical Denies family history of Colon cancer Ovarian cancer Clotting disorder Hypercholesteremia Psychiatric illness Chronic kidney disease (CKD) Anesthesia complication Bleeding disorder Lung disease Uterine cancer Thyroid disease Social History (Updated 11/04/22 @ 15:58 by Johny Loomis MD) Smoking and tobacco status: current every day smoker (1 PPD) cigarettes [ Other cigarette details: 1PPD, 45PY] Alcohol intake: current Alcohol type: hard liquor Lives independently: Yes Marital status: Single Number of children: 1 Current occupational status: unemployed and disabled Agree to transfusion: Yes Physical Exam Const: COMMON NORMALS: no acute distress, average body habitus, patient oriented x3, no limitations, healthy appearing, alert and well nourished GENERAL APPEARANCE: cooperative, comfortable and well developed; not in distress and not anxious ORIENTATION/CONSCIOUSNESS: Yes awake, Yes oriented to person, Yes oriented to place and Yes oriented to time HENMT: COMMON NORMALS: normocephalic and atraumatic HEAD & SCALP: normal to inspection, normocephalic and atraumatic FACE & SINUS: normal facial exam and face symmetric NOSE: Normal nares present GENERAL EAR: hearing not grossly impaired EXTERNAL EAR: Yes no periauricular adenopathy MOUTH: Normal oral and palatal mucosa present and lip normal Eye: COMMON NORMALS: Equal, round and reactive pupils present, EOMs intact bilaterally, conjunctivae normal, no scleral icterus and no papilledema GENERAL EYE: appearance normal, both eyes and all related structures ALIGNMENT: Yes alignment normal PERIORBITAL: periorbital findings normal EYELID: eyelids normal CONJUNCTIVA: Yes conjunctivae normal PUPIL: Yes Equal, round and reactive pupils present DIRECT OPHTHALMOSCOPY: Yes no papilledema Neck/C-Spine: COMMON NORMALS: full ROM, supple, no meningeal signs and no JVD GENERAL: Yes normal visual inspection CERVICAL SPINE: Yes cervical ROM normal Lymph: LYMPHATIC: no lymphadenopathy noted Chest: COMMONS NORMALS: normal inspection of the chest Breast/axilla inspection: Yes no chest deformity, asymmetry, normal contours, no nodules, masses, tenderness Resp: COMMON NORMALS: normal respiratory effort, No retractions and No use of accessory muscles EFFORT & INSPECTION: Yes able to speak in complete sentences, Yes symmetric chest movement, No abnormal respiratory pattern, No tachypneic and No respiratory distress Cardio: COMMON NORMALS: no JVD, regular rate and Peripheral pulses 2+ throughout RATE: regular rate PERIPHERAL PULSES: Peripheral pulses 2+ throughout GI: COMMON NORMALS: Normal to inspection, nondistended, normoactive bowel sounds present, Soft to palpation and non-tender INSPECTION: Yes normal to inspection PALPATION: Yes Soft to palpation : COMMON NORMALS: Yes no CVA tenderness BLADDER/KIDNEY EXAM: Yes no CVA tenderness Back/Pelvis: COMMON NORMALS: no CVA tenderness, thoracic and lumbar spine normal to inspection, no thoracic nor lumbar tenderness, thoraco-lumbar ROM normal and straight leg raise negative bilaterally GENERAL BACK: No ecchymosis THORACIC SPINE/UPPER BACK: Yes normal to inspection LUMBAR SPINE/LOWER BACK: Yes normal to inspection and Yes straight leg raise negative bilaterally OTHER: Nontender to palpation over cervical thoracic and lumbar spine. Patient is tender to further down you get on her sacrum. No wounds Patient has normal sensation in bilateral lower extremities and denies any numbness or tingling. Extremity: COMMON NORMALS: normal to inspection, full ROM and capillary refill normal GENERAL: Yes normal exam except as noted Neuro: COMMON NORMALS: patient oriented x3 SENSORIUM/ORIENTATION: Yes alert, Yes oriented to person, Yes oriented to place and Yes oriented to time MENINGEAL SIGNS: Yes no meningeal signs Psych: COMMON NORMALS: mental status grossly normal, Normal thought process present, cooperative, normal affect, speech normal and activity/motor behavior normal SPEECH: Yes normal speech THOUGHT PROCESS: Normal thought process present Skin: COMMON NORMALS: no rashes or lesions noted, no wounds, turgor normal, no jaundice, no petechiae and no mottling GENERAL SKIN EXAM: no rashes or lesions noted and turgor normal Course Vital Signs: Vital signs: Vital Signs Temperature 98.2 F 12/03/22 12:19 Pulse Rate 86 12/03/22 14:44 Respiratory Rate 16 12/03/22 14:44 Blood Pressure 127/80 12/03/22 12:19 Pulse Oximetry 97 12/03/22 14:44 MDM - Fall Medical Decision Making Patient was evaluated in the emergency department for complaints of pain in her sacrum after fall from standing. Differential diagnoses include fracture, displaced fracture, open fracture, contusions. XR imaging of her sacrum and coccyx reveal no acute fractures per radiology read. Have questions about 1 3 images of the coccyx which may show some angulation and distraction of the bones of the coccyx. Patient and I have reviewed this together and discussed management. Ultimately whether it is fractured or not it is unlikely it would require any surgical intervention. I have treated her pain here in the emergency department with Toradol and she responded positively. She is can go home with a Toradol prescription. Going to return to the emergency department for new concerning or worsening symptoms and otherwise follow-up with primary care. Questions answered in detail Lab Data Radiology Impressions Sacrum and Coccyx X-Ray 12/03/22 12:43 IMPRESSION: No acute findings. Head CT 12/03/22 12:44 IMPRESSION: No acute intracranial abnormality. Discharge Plan Discharge Patient Disposition: Home Clinical Impression: Fall, Multiple contusions Condition: Stable Prescriptions: New ketorolac 10 mg tablet 10 mg PO Q8H PRN (Reason: pain) 5 Days Qty: 15 0RF No Action hydrocodone-acetaminophen 5-325 mg tablet 1 tab PO TID estradiol [Yuvafem] 10 mcg tablet 10 mcg vaginal .twice week Qty: 24 3RF buspirone 5 mg tablet 5 mg PO BID Qty: 60 1RF fluticasone propion-salmeterol [Advair Diskus] 250-50 mcg/dose blister with device 1 inh inhalation BID Qty: 60 2RF albuterol sulfate 90 mcg/actuation HFA aerosol inhaler 1 inh inhalation QID PRN (Reason: shortness of breath or wheezing) Qty: 8.5 2RF amlodipine [Norvasc] 5 mg tablet 5 mg PO DAILY Qty: 30 0RF fluticasone propionate [Flonase Allergy Relief] 50 mcg/actuation spray,suspension 2 spray intranasal DAILY Qty: 16 0RF Rx Instructions: administer into each nostril valsartan 320 mg tablet 320 mg PO DAILY Qty: 30 1RF Discharge Orders: Discharge ED (Routine); Ordered 12/03/22 [place] By: Asim Casanova [facility] [place] Johny Loomis MD [Primary Care Provider] - Discharge Diet: Advance as tolerated Discharge Activity: Resume usual activity Patient Instructions: Opioid Safety, Pain Management Activity Restrictions/Additional Instructions: Return to the emergency department for new concerning or worsening symptoms Take the Toradol as prescribed Coding Level of Care Code ED Meat Market Manager for Shelbi Thomson
--- NOTE | 2022-12-03 12:43 | XRR_ITS ---
PROCEDURE INFORMATION: Exam: XR Sacrum and Coccyx, 2 or More Views Exam date and time: 12/03/2022 12:45 PM Age: 57 years old Clinical indication: Injury or trauma; Fall; Blunt trauma (contusions or hematomas); Additional info: Trauma, pain TECHNIQUE: Imaging protocol: XR of the sacrum and coccyx, 2 or more views. COMPARISON: CR XR hip BI m 5V wo/w pel* [id number] 07/04/2022 8:29 AM FINDINGS: Bones/joints: Normal. No acute fracture. Soft tissues: Normal. XR/XR sacrum coccyx min 2V [id number] IMPRESSION: No acute findings.
--- NOTE | 2022-12-03 12:44 | CTR_ITS ---
PROCEDURE INFORMATION: Exam: CT Head Without Contrast Exam date and time: 12/03/2022 12:53 PM Age: 57 years old Clinical indication: Injury or trauma; Fall; Blunt trauma (contusions or hematomas); Additional info: Fall, trauma TECHNIQUE: Imaging protocol: Computed tomography of the head without contrast. Radiation optimization: All CT scans at this facility use at least one of these dose optimization techniques: automated exposure control; mA and/or kV adjustment per patient size (includes targeted exams where dose is matched to clinical indication); or iterative reconstruction. COMPARISON: CT head wo con* [id number] 11/19/2018 2:38 AM RADIATION DOSE METRICS: Total DLP (mGy-cm): 1047.88 FINDINGS: Brain: Normal. No hemorrhage. Unremarkable white matter. No mass effect. Cerebral ventricles: No ventriculomegaly. Paranasal sinuses: Visualized sinuses are unremarkable. No fluid levels. Mastoid air cells: Visualized mastoid air cells are well aerated. Bones/joints: Unremarkable. No acute fracture. Soft tissues: Unremarkable. CT/CT head wo con* [id number] IMPRESSION: No acute intracranial abnormality.
[2022-12-03] MEDS: ketorolac 30 mg/mL INJ IM (13:05)
[2022-12-03 14:44] VITALS: PULSE 86; RESP 16; O2SAT 97
== END 2022-12-03 14:45 | disposition home or self-care (01) ==
PROVIDERS: Emergency Provider Nurse Practitioner; PCP Family Medicine
DX: T14.8XXA Other injury of unspecified body region, initial encounter (principal); F17.210 Nicotine dependence, cigarettes, uncomplicated; I10 Essential (primary) hypertension; W18.30XA Fall on same level, unspecified, initial encounter
CPT/HCPCS: 70450; 72220; 96372; 99284; J1885

== ENCOUNTER 2023-01-17 07:56 | Outpatient (CLI) | payer MEDICAID, SELFPAY ==
--- NOTE | 2023-01-17 09:20 | US_ITS ---
WS: [id number] ULTRASOUND RIGHT BREAST HISTORY: 6 MONTH F/U COMPARISON: 07/19/2022, 08/03/2021 TECHNIQUE: 2-D and Doppler. Lobulated soft tissue mass at 12:00, 2 cm from the nipple is reidentified now measuring 4 x 5 x 2 mm. Mass has slightly decreased in size as compared to the prior study. This was noted to be benign on p rior biopsy. Due to stability no additional imaging necessary. US/US breast RT limited* [id number] IMPRESSION: BI-RADS: 3-Probably Benign FOLLOW-UP: 6 Month Follow-up Patient to return to bilateral screening mammography. Annual screening mammogra m should be in June 2023.
== END 2023-01-17 07:57 | disposition home or self-care (01) ==
LOC: RAD 07:58
PROVIDERS: PCP Family Medicine; Visit Provider Nurse Practitioner Women's Health
DX: N63.15 Unspecified lump in the right breast, overlapping quadrants (principal); R92.8 Other abnormal and inconclusive findings on diagnostic imaging of breast
CPT/HCPCS: 76642

== ENCOUNTER 2023-03-15 23:19 | Emergency (ER) | payer MEDICAID, SELFPAY ==
[2023-03-15 23:19] VITALS: BP 161/100; PULSE 108; RESP 20; TEMP 36.6; O2SAT 96; BMI 22.8
--- NOTE | 2023-03-15 23:20 | ED_ITS ---
HPI - Extremity Injury (Upper) General: Chief Complaint: Extremity Injury, Upper Stated Complaint: Left Shoulder Pain Time Seen by Provider: 03/15/23 23:20 History of Present Illness: 57-year-old female comes in today with complaints of pain in the left shoulder that started this morning. Patient has used some hydrocodone with minimal relief of the pain. Patient has also tried some Biofreeze and Salonpas patches. Patient appears nontoxic. Patient denies any shortness of breath or fever. Pain is exacerbated with movement of the arm and shoulder. Patient does take medication for high blood pressure and COPD. Review of Systems General: Reports: 10 or more systems reviewed and unremarkable except in HPI and below Const: Denies: fever(s) Card: Denies: chest pain Resp: Denies: dyspnea GI: Denies: vomiting : Denies: flank pain Musc: Reports: extremity pain (Left shoulder pain) Skin/Breast: Denies: rash Neuro: Denies: headache(s) PFSH ED PFSH: Medical History Chronic back pain Dyspareunia H/O thyroid nodule History of nonmelanoma skin cancer Hypertension No pertinent past medical history negxhx: dm,dvt/pe PCP: None Surgical History H/O colonoscopy (~2019) Ibrahim: negative History of appendectomy with tubal ligation History of carpal tunnel surgery of left wrist (~04/2018) History of carpal tunnel surgery of right wrist (~01/2019) History of endometrial ablation (~05/13/09) 05/13/2009. Dysfunctional uterine bleeding. [place] [facility] [place] History of foot surgery (~1977) Right foot, Repaired ligaments and tendons after foot cut. History of oophorectomy (~2008) Left History of salpingectomy (~05/13/09) Left ovarian cyst. Dyspareunia. Laparoscopic LSO, ALEM. [place]. Dr. Reyes History of spinal fusion History of tubal ligation (~1994) Hx of dilation and curettage (~05/13/09) Dysfunctional uterine bleeding. Hysteroscopy D[place] [facility] [place]. 1990. D&C. Right radial head fracture Family History Father Lung cancer Diabetes Heart disease Hypertension Stroke CAD (coronary artery disease) Cancer melanoma Hyperlipidemia Mother Breast cancer dx age 56 Hypertension Hyperlipidemia Brother Hypertension Sister Hypertension Cancer cervical Denies family history of Colon cancer Ovarian cancer Clotting disorder Hypercholesteremia Psychiatric illness Chronic kidney disease (CKD) Anesthesia complication Bleeding disorder Lung disease Uterine cancer Thyroid disease Social History (Updated 12/26/22 @ 11:28 by Roselyn Davila LPN) Smoking and tobacco status: current every day smoker (1 PPD) cigarettes [ Other cigarette details: 1PPD, 45PY] Alcohol intake: current Alcohol intake frequency: 3 or more drinks per day Alcohol type: hard liquor Substance/Drug Use: former Date of last use: 1979--history of Cocaine use Lives independently: Yes Marital status: Single Number of children: 1 Current occupational status: unemployed and disabled Agree to transfusion: Yes Physical Exam Const: COMMON NORMALS: alert HENMT: COMMON NORMALS: normocephalic HEAD & SCALP: normocephalic Neck/C-Spine: COMMON NORMALS: full ROM Chest: COMMONS NORMALS: normal palpation of entire chest wall Resp: COMMON NORMALS: normal respiratory effort AUSCULTATION: wheezes Cardio: COMMON NORMALS: regular rate and regular rhythm RATE: regular rate RHYTHM: regular rhythm GI: COMMON NORMALS: non-tender : COMMON NORMALS: Yes no CVA tenderness BLADDER/KIDNEY EXAM: Yes no CVA tenderness Back/Pelvis: COMMON NORMALS: no CVA tenderness Extremity: LEFT UPPER EXTREMITY: Yes shoulder joint (Increasing pain with movement, joint line tenderness on palpation) Left shoulder joint: Yes inspection, Yes palpation, Yes ROM and Yes neurovascular exam (Distal neurovascular intact) Neuro: SENSORIUM/ORIENTATION: Yes alert Skin: COMMON NORMALS: turgor normal GENERAL SKIN EXAM: turgor normal Course Vital Signs: Vital signs: Vital Signs Temperature 97.9 F 03/15/23 23:19 Pulse Rate 108 H 03/15/23 23:19 Respiratory Rate 20 H 03/15/23 23:19 Blood Pressure 161/100 03/15/23 23:19 Pulse Oximetry 96 03/15/23 23:19 Oxygen Delivery Me thod Room Air 03/15/23 23:19 MDM - Extremity Injury (Upper) Medical Decision Making 57-year-old female comes in today with complaints of left shoulder pain. On exam patient appears nontoxic. Patient has increased pain with movement of the left shoulder. Distal pulses and sensation are intact. Palpation of the joint line the left shoulder elicits pain. Differential diagnosis includes but not limited to bursitis, tendinitis, shoulder impingement syndrome. Reviewed exam with patient with recommendations for treatment and follow-up. Patient was given 30 mg of Toradol IM and 1 hydrocodone tablet with significant improvement of pain. Patient has hydrocodone at home which she will use as directed, we will add Celebrex to her regimen for the next 10 days to help with pain and infl ammation. Patient was instructed not to use ibuprofen or naproxen with Celebrex. Patient reported understanding of care plan need for follow-up or return to the ER. Lab Data Radiology Impressions Shoulder X-Ray 03/15/23 23:30 IMPRESSION: No acute findings. Discharge Plan Discharge Patient Disposition: Home Clinical Impression: Impingement of left shoulder Condition: Stable Prescriptions: New celecoxib 200 mg capsule 200 mg PO BID Qty: 20 0RF No Action hydrocodone-acetaminophen 5-325 mg tablet 1 tab PO TID estradiol [Yuvafem] 10 mcg tablet 10 mcg vaginal .twice week Qty: 24 3RF fluticasone propionate [Flonase Allergy Relief] 50 mcg/actuation spray,suspension 2 spray intranasal DAILY Qty: 16 0RF Rx Instructions: administer into each nostril valsartan 320 mg tablet 320 mg PO DAILY Qty: 30 1RF hydrochlorothiazide 12.5 mg tablet 12.5 mg PO QAM Qty: 90 1RF buspirone 5 mg tablet 5 mg PO BID Qty: 60 1RF fluticasone propion-salmeterol [Advair Diskus] 250-50 mcg/dose blister with device 1 inh inhalation BID Qty: 60 2RF albuterol sulfate 90 mcg/actuation HFA aerosol inhaler 1 inh inhalation QID PRN (Reason: shortness of breath or wheezing) Qty: 8.5 2RF Discharge Orders: Discharge ED (Routine); Ordered 03/16/23 Ordered By: Guy Sheppard Referrals: Johny Loomis MD [Primary Care Provider] - Discharge Diet: Usual diet Discharge Activity: Increase activity as tolerated Patient Instructions: Shoulder Pain (ED), Pain Management Activity Restrictions/Additional Instructions: Use ice and heat to help control pain. Continue with routine medications at home as directed. Take Celebrex 200 mg twice a day for pain and inflammation. Do not use naproxen or ibuprofen with Celebrex. Drink plenty of water with medication. Follow-up with primary care in 1 week for recheck. Return to emergency department for new concerns. Coding Level of Care Code ED Relief Driller for Shelbi Thomson
--- NOTE | 2023-03-15 23:30 | XRR_ITS ---
PROCEDURE INFORMATION: Exam: XR Left Shoulder Exam date and time: 03/15/2023 11:33 PM Age: 57 years old Clinical indication: Prior surgery; Surgery type: Cervical fusion; Patient HX: C/O spontaneous left shoulder pain. No recent injury. TECHNIQUE: Imaging protocol: Radiologic exam of the left shoulder. Views: 2 or more views. COMPARISON: CR XR chest 1V [id number] 03/16/2018 8:26 PM FINDINGS: Bones/joints: Normal. Soft tissues: Normal. XR/XR shoulder LT min 2V* [id number] IMPRESSION: No acute findings.
[2023-03-15] MEDS: ketorolac 30 mg/mL INJ IM (23:39)
[2023-03-15] MEDS: HYDROcodone-acetaminophen 10-325 mg Tablet 1 TAB PO (23:39)
[2023-03-16 00:22] VITALS: BP 120/68; PULSE 87; RESP 18; O2SAT 95
== END 2023-03-16 00:23 | disposition home or self-care (01) ==
PROVIDERS: Emergency Provider Nurse Practitioner Family; PCP Family Medicine
DX: M75.42 Impingement syndrome of left shoulder (principal)
CPT/HCPCS: 73030; 96372; 99284; J1885

== ENCOUNTER 2023-06-28 13:34 | Outpatient (CLI) | payer MEDICAID, SELFPAY ==
--- NOTE | 2023-06-28 14:00 | MM_ITS ---
WS: [id number] BILATERAL 3D TOMOSYNTHESIS DIGITAL SCREENING MAMMOGRAPHY WITH CAD CLINICAL INFORMATION: SCREEN HISTORY: Screening mammogram. No current complaints. COMPARISON: 06/28/2022 TECHNIQUE: Bilateral CC and MLO views. FINDINGS: The breasts are composed of heterogeneous fibroglandular density tissue, which can limit the detectio n of small underlying mass lesions. No suspicious mass, asymmetry, calcifications, or architectural d istortion. No evidence of malignancy. Biopsy clip right breast IMPRESSION: MM/[place] [id number] BI-RADS: 2-Benign FOLLOW UP: 1 Year Follow-up Recommend return to annual screening mammography.
== END 2023-06-28 13:35 | disposition home or self-care (01) ==
LOC: RAD 13:37 → MOBLMAM 13:37 → RAD 13:53
PROVIDERS: PCP Family Medicine; Visit Provider Nurse Practitioner Women's Health
DX: Z12.31 Encounter for screening mammogram for malignant neoplasm of breast (principal)
CPT/HCPCS: 77063; 77067

== ENCOUNTER → 2023-07-17 14:08 | Outpatient (BNVA) | payer MEDICAID, SELFPAY | PROVIDERS: PCP Family Medicine; Visit Provider Dermatology | DX: L57.0 Actinic keratosis (principal); L91.8 Other hypertrophic disorders of the skin; L72.0 Epidermal cyst; L82.1 Other seborrheic keratosis; Z85.828 Personal history of other malignant neoplasm of skin; L57.8 Other skin changes due to chronic exposure to nonionizing radiation | CPT/HCPCS: 17000; 17003; 99213 ==

== ENCOUNTER 2023-11-10 10:00 | Outpatient (CLI) | payer MEDICAID, SELFPAY ==
--- NOTE | 2023-11-10 11:02 | MR_ITS ---
WS: [id number] MRI LUMBAR SPINE NONCONTRAST HISTORY: LOW BACK PAIN COMPARISON: 09/07/2020 TECHNIQUE: Sagittal and axial multisequence imaging is submitted. L2 retrolisthesis by 2.4 mm. There is edema in the adjacent endplates of L2 and L3 with loss of disc space height. The marrow edema is new since 2020 with progression of degenerative disc disease. The r emaining disc levels are well-preserved. Conus terminates normally at L1. L1-L2: Normal. L2-L3: Diffuse annular disc bulging and osteophytic ridging with fluid in the facet joints. There is disc and osteophyte encroachment upon the ventral thecal sac and subarticular recesses. Disc contacts the traversing L3 nerve roots. Moderate central, bilateral subarticular recess and foraminal stenosi s, RIGHT greater than LEFT. L3-L4: Diffuse annular disc bulging with ligamentum flavum and facet arthritis. Disc encroachment upo n the thecal sac and subarticular recesses. Mild central, bilateral subarticular recess and moderate foraminal stenosis. L4-L5: Diffuse annular disc bulging. Moderate ligamentum flavum and facet arthritis. There is disc en croachment upon the traversing L5 nerve roots. Severe central, bilateral subarticular recess and mild foraminal stenosis. L5-S1: Central disc protrusion. Mild annular disc bulging with mild contact on the S1 nerve roots. Bi lateral facet joint arthritis. Mild central, bilateral subarticular recess and foraminal stenosis. Increased T2 signal on the RIGHT involving the facet joints of L2-3 and L3-4. IMPRESSION: 1. Progression of degenerative changes throughout the lumbar spine as compared to 09/07/2020. 2. Progression of degenerative disc disease and marrow edema at L2-3. 3. L2 retrolisthesis by 2.4 mm. 4. L2-3: Moderate central, bilateral subarticular recess and foraminal stenosis, RIGHT greater than L EFT. Disc contacts the traversing L3 nerve roots. 5. L3-4: Mild central, bilateral subarticular recess and moderate foraminal stenosis. 6. L4-5: Severe central, bilateral subarticular recess and mild foraminal stenosis. Significant disc encroachment upon the traversing L5 nerve roots. 7. Mild central, bilateral subarticular recess and foraminal stenosis. Mild disc contact on the S1 ne rve roots. 8. Mild RIGHT L2-3 and L3-4 facet joint synovitis.
== END 2023-11-10 10:01 | disposition home or self-care (01) ==
LOC: RAD 10:01
PROVIDERS: PCP Family Medicine; Visit Provider Nurse Practitioner Family
DX: M47.816 Spondylosis without myelopathy or radiculopathy, lumbar region (principal); M48.061 Spinal stenosis, lumbar region without neurogenic claudication
CPT/HCPCS: 72148

== ENCOUNTER 2023-12-30 17:41 | Emergency (ER) | payer MEDICAID, SELFPAY ==
[2023-12-30 17:44] VITALS: BP 130/77; PULSE 87; RESP 17; TEMP 36.9; O2SAT 96; BMI 23.8
--- NOTE | 2023-12-30 17:49 | ECG_ITS ---
[facility] Test Date: 2023-12-30 Pat Name: Charisma Day Department: Room: Gender: Female [employer] Developer: : 1965 Requested By: Leo Sotelo Order Number: [id number] Olivia MD: Gerson Watkins M.D. Measurements Intervals [place] Rate: 90 P: 85 WI: 157 QRS: 66 QRSD: 70 T: 86 QT: 334 QTc: 410 Interpretive Statements SINUS RHYTHM INTERPRETATION BASED ON A DEFAULT AGE OF 40 YEARS No previous ECG available for comparison Electronically Signed On 01-01-2024 14:16:45 E/M ENGINEER by Gerson Watkins M.D. [email or web address], Incperry [facility] hospitalK[email or web address].[employer]/store/NU/[id number] f
--- NOTE | 2023-12-30 18:01 | W.ED.EXTPRO ---
HPI - Extremity Problem General: Chief complaint: Extremity Problem,Nontraumatic Stated complaint: left shoulder pains Time Seen by Provider: 12/30/23 17:51 Source: patient Mode of arrival: ambulatory Limitations: no limitations History of Present Illness: Patient is a nice 58-year-old female presents to ED today with complaint of left shoulder pain. Patient states she woke up with the discomfort. Patient states she had an identical episode approximately a year ago back in February and was seen here in the ED. She states she was given IM Toradol and a prescription for Celebrex which completely alleviated her discomfort. She states she has had no issues with the shoulder since then until today. Pain is directly reproducible with range of motion. She has not noticed any redness or warmth to the joint. No known injury or trauma. She is not having any chest pain or shortness of breath. MD Complaint: joint pain Onset (ago): hour(s) Pain Consistency: constant Location: left and upper extremity (shoulder) Radiation: none Relieving factors: immobilization Exacerbating factors: range of motion Associated symptoms: Reports no associated symptoms; Deny chest pain or fever(s) Review of Systems Const: Denies: fever(s), chills or body aches Card: Denies: chest pain or edema Resp: Denies: dyspnea Musc: Reports: joint pain (L shoulder) and limited range of motion (L shoulder); Denies: neck pain, back pain, extremity pain, extremity swelling, joint swelling, joint redness, joint warmth or muscle weakness Neuro: Denies: numbness in extremities, weakness in extremities or sensory changes [facility] ED PFSH: Medical History No pertinent past medical history negxhx: dm,dvt/pe PCP: None H/O thyroid nodule Hypertension History of nonmelanoma skin cancer Chronic back pain Dyspareunia Surgical History Right radial head fracture History of appendectomy with tubal ligation H/O colonoscopy (~2019) Ibrahim: negative History of carpal tunnel surgery of right wrist (~01/2019) Hx of dilation and curettage (~05/13/09) Dysfunctional uterine bleeding. [place]ster[place] [facility] [place]. D&C. History of salpingectomy (~05/13/09) Left ovarian cyst. Dyspareunia. Laparoscopic LSO, [place] [facility] [place] History of oophorectomy (~2008) Left History of carpal tunnel surgery of left wrist (~04/2018) History of spinal fusion History of endometrial ablation (~05/13/09) 05/13/2009. Dysfunctional uterine bleeding. Jayne HTA. [facility] [place]. History of foot surgery (~1977) Right foot, Repaired ligaments and tendons after foot cut. History of tubal ligation (~1994) Family History Father Lung cancer Diabetes Heart disease Hypertension Stroke CAD (coronary artery disease) Cancer melanoma Hyperlipidemia Mother Breast cancer dx age 56 Hypertension Hyperlipidemia Brother Hypertension Sister Hypertension Cancer cervical Denies family history of Colon cancer Ovarian cancer Clotting disorder Hypercholesteremia Psychiatric illness Chronic kidney disease (CKD) Anesthesia complication Bleeding disorder Lung disease Uterine cancer Thyroid disease Social History Smoking and tobacco/nicotine status: current every day tobacco/nicotine user (1 PPD) cigarettes Packs smoked per day: 0.5 [ Other cigarette details: 1PPD, 45PY] Alcohol intake: current Alcohol intake frequency: 3 or more drinks per day Alcohol type: hard liquor Substance/Drug Use: former Date of last use: 1979--history of Cocaine use Lives independently: Yes Marital status: Single Number of children: 1 Current occupational status: unemployed and disabled Agree to transfusion: Yes Physical Exam Const: COMMON NORMALS: no acute distress, average body habitus, patient oriented x3, no limitations, alert and well nourished Neck/C-Spine: COMMON NORMALS: full ROM, no lymphadenopathy and no JVD CERVICAL SPINE: No Cervical spine tenderness, No Paracervical muscle tenderness and No Trapezius muscle tenderness Chest: COMMONS NORMALS: normal inspection of the chest and normal palpation of entire chest wall Resp: COMMON NORMALS: normal respiratory effort and clear to auscultation bilaterally AUSCULTATION: clear to auscultation bilaterally Cardio: COMMON NORMALS: no JVD, regular rate and regular rhythm RATE: regular rate RHYTHM: regular rhythm Extremity: COMMON NORMALS: normal to inspection, capillary refill normal, no joint enlargement and no clubbing, cyanosis or edema GENERAL: Yes normal exam except as noted LEFT UPPER EXTREMITY: Yes shoulder joint Left shoulder joint: Yes inspection (normal gross inspection), Yes palpation (crepitus noted with ROM), Yes ROM (limited secondary to pain), Yes neurovascular exam (normal) and Yes other (TTP anterior glenohumeral joint line) Neuro: COMMON NORMALS: patient oriented x3, moves all extremities, no focal motor deficits and no sensory deficits noted SENSORIUM/ORIENTATION: Yes alert Course Vital Signs: Vital signs: Vital Signs Temperature 98.5 F 12/30/23 17:44 Pulse Rate 87 12/30/23 17:44 Respiratory Rate 17 12/30/23 17:44 Blood Pressure 130/77 12/30/23 17:44 Pulse Oximetry 96 12/30/23 17:44 Oxygen Delivery Me thod Room Air 12/30/23 17:44 MDM - Extremity (Nontraumatic) Medical Decision Making Patient's shoulder pain is directly reproducible with palpation and range of motion. She has not had any injury or trauma. There is no indication for emergent imaging at this time. She is reporting identical episode approximately a year ago that was successfully treated with IM Toradol and a prescription for Celebrex. She will be provided these same treatments today. Recommend follow-up with her primary care provider in 1 to 2 weeks if symptoms are not improving. Of note she has no complaints of chest pain, shortness of breath, difficulty breathing, or palpitations. Medical Records I reviewed the patient's medical records. No radiology studies performed this visit Discharge Plan Discharge Patient Disposition: Home Clinical Impression: Left shoulder pain Qualifiers: Chronicity: acute Qualified Code(s): M25.512 - Pain in left shoulder Condition: Stable Prescriptions: New Celebrex 100 mg capsule 100 mg PO BID Qty: 14 0RF No Action fluticasone propionate [Flonase Allergy Relief] 50 mcg/actuation spray,suspension 2 spray intranasal DAILY Qty: 16 3RF Rx Instructions: administer into each nostril valsartan 320 mg tablet 320 mg PO DAILY Qty: 90 1RF albuterol sulfate 90 mcg/actuation HFA aerosol inhaler 1 inh inhalation QID PRN (Reason: shortness of breath or wheezing) Qty: 8.5 3RF fluticasone propion-salmeterol [Advair Diskus] 250-50 mcg/dose blister with device 1 inh inhalation BID Qty: 60 3RF varenicline [Chantix Continuing Month Box] 1 mg tablet 1 mg PO BID Qty: 56 4RF buspirone 10 mg tablet 20 mg PO BID Qty: 240 0RF hydrochlorothiazide 12.5 mg tablet 12.5 mg PO QAM Qty: 90 0RF hydrocodone-acetaminophen 5-325 mg tablet 1 tab PO Q6H PRN (Reason: pain) 30 Days Qty: 120 0RF Discharge Orders: Discharge ED (Routine); Ordered 12/30/23 Ordered By: Fidelina Pierre Referrals: Johny Loomis MD [Primary Care Provider] - Activity Restrictions/Additional Instructions: As we discussed you follow-up with your primary care provider in 1 to 2 weeks if symptoms persist despite medications. Coding Level of Care Code ED Machine Cloth Measurer for Shelbi Thomson
[2023-12-30] MEDS: ketorolac 60 mg/2 mL INJ IM (18:18)
== END 2023-12-30 18:25 | disposition home or self-care (01) ==
PROVIDERS: Emergency Provider Physician Assistant; PCP Family Medicine
DX: M25.512 Pain in left shoulder (principal); F17.210 Nicotine dependence, cigarettes, uncomplicated; I10 Essential (primary) hypertension
CPT/HCPCS: 93005; 96372; 99284; J1885

== ENCOUNTER 2024-01-20 13:58 | Emergency (ER) | payer MEDICAID, SELFPAY ==
[2024-01-20 14:00] VITALS: BP 125/81; PULSE 85; RESP 17; TEMP 36.6; O2SAT 97; BMI 24.5
--- NOTE | 2024-01-20 18:39 | XRR_ITS ---
PROCEDURE INFORMATION: Exam: XR Left Shoulder Exam date and time: 01/20/2024 7:29 PM Age: 58 years old Clinical indication: Left; Patient HX: Lt shoulder pain; No known injury TECHNIQUE: Imaging protocol: Radiologic exam of the left shoulder. Views: 2 or more views. COMPARISON: CR XR shoulder LT min 2V* [id number] 03/15/2023 11:33 PM FINDINGS: Bones/joints: Normal. Soft tissues: Normal. XR/XR shoulder LT min 2V* [id number] IMPRESSION: No acute findings.
--- NOTE | 2024-01-20 18:40 | ED_ITS ---
Documented by User: MACO Olson 01/20/24 20:54 HPI - Neck Pain/Injury General: Chief Complaint: Neck Pain/Injury Stated Complaint: shoulder and neck pain Time Seen by Provider: 01/20/24 14:24 Source: patient Mode of arrival: ambulatory Limitations: no limitations History of Present Illness: Patient is a 58-year-old female presents complaining of left shoulder pain onset intermittently for the past year. Patient states initial injury occurred last February all of a sudden, and does not report any inciting event. The pain went away at that time and came back 2 weeks ago in which she was evaluated in the emergency room and discharged on a muscle relaxer. She states this helped but she has since run out of her muscle relaxer. The pain came back today following a nap and she states that is the worst it has ever been. She denies any distal neurovascular changes, such as no numbness, weakness, or tingling. She states the pain is primarily in the left shoulder joint and hurts with any range of motion. She denies any trauma. She is right-hand dominant. Pain is sharp and is somewhat improving, but still present. Associated symptoms: Denies headache(s) or nausea Review of Systems General: Reports: 10 or more systems reviewed and unremarkable except in HPI and below Const: Denies: fever(s), chills or fatigue Eyes: Denies: change in vision ENMT: Denies: throat pain, ear or mastoid pain or nasal discharge Card: Denies: chest pain, palpitations, swelling of feet/ankles or lightheadedness Resp: Denies: dyspnea, productive cough or wheezing GI: Denies: abdominal pain, nausea, vomiting, diarrhea or constipation : Denies: flank pain, difficulty voiding, dysuria or urinary frequency Musc: Reports: joint pain (Left shoulder) and limited range of motion; Denies: neck pain, back pain, extremity pain, extremity swelling, joint swelling, joint redness or joint warmth Skin/Breast: Denies: rash Neuro: Denies: headache(s), numbness in extremities or weakness in extremities PFS ED PFSH: Medical History No pertinent past medical history negxhx: dm,dvt/pe PCP: None H/O thyroid nodule Hypertension History of nonmelanoma skin cancer Chronic back pain Dyspareunia Surgical History Right radial head fracture History of appendectomy with tubal ligation H/O colonoscopy (~2019) Ibrahim: negative History of carpal tunnel surgery of right wrist (~01/2019) Hx of dilation and curettage (~05/13/09) Dysfunctional uterine bleeding. Hysteroscopy D&C. [facility] [place] Re[place]. 1990. D&C. History of salpingectomy (~05/13/09) Left ovarian cyst. Dyspareunia. Laparoscopic LSO, [facility]. [facility] [place] Reyes History of oophorectomy (~2008) Left History of carpal tunnel surgery of left wrist (~04/2018) History of spinal fusion History of endometrial ablation (~05/13/09) 05/13/2009. Dysfunctional uterine bleeding. Jayne HTA. [facility] [place]. Reyes. History of foot surgery (~1977) Right foot, Repaired ligaments and tendons after foot cut. History of tubal ligation (~1994) Family History Father Lung cancer Diabetes Heart disease Hypertension Stroke CAD (coronary artery disease) Cancer melanoma Hyperlipidemia Mother Breast cancer dx age 56 Hypertension Hyperlipidemia Brother Hypertension Sister Hypertension Cancer cervical Denies family history of Colon cancer Ovarian cancer Clotting disorder Hypercholesteremia Psychiatric illness Chronic kidney disease (CKD) Anesthesia complication Bleeding disorder Lung disease Uterine cancer Thyroid disease Social History Smoking and tobacco/nicotine status: current every day tobacco/nicotine user (1 PPD) cigarettes Packs smoked per day: 0.5 [ Other cigarette details: 1PPD, 45PY] Alcohol intake: current Alcohol intake frequency: 3 or more drinks per day Alcohol type: hard liquor Substance/Drug Use: former Date of last use: 1979--history of Cocaine use Lives independently: Yes Marital status: Single Number of children: 1 Current occupational status: unemployed and disabled Agree to transfusion: Yes Physical Exam Const: COMMON NORMALS: no acute distress, patient oriented x3 and no limitations GENERAL APPEARANCE: cooperative, comfortable and well developed ORIENTATION/CONSCIOUSNESS: Yes awake, Yes oriented to person, Yes oriented to place and Yes oriented to time HENMT: COMMON NORMALS: normocephalic, atraumatic and hearing grossly normal bilaterally HEAD & SCALP: normocephalic and atraumatic Eye: COMMON NORMALS: Equal, round and reactive pupils present, EOMs intact bilaterally and conjunctivae normal CONJUNCTIVA: Yes conjunctivae normal PUPIL: Yes Equal, round and reactive pupils present Neck/C-Spine: COMMON NORMALS: full ROM, supple and no JVD Resp: COMMON NORMALS: normal respiratory effort, No retractions, No use of accessory muscles and clear to auscultation bilaterally AUSCULTATION: clear to auscultation bilaterally Cardio: COMMON NORMALS: no JVD, regular rate, regular rhythm, No clicks present (Cardio), No murmurs present (Cardio) and No rub (Cardio) RATE: regular rate RHYTHM: regular rhythm Back/Pelvis: COMMON NORMALS: thoracic and lumbar spine normal to inspection, no thoracic nor lumbar tenderness and thoraco-lumbar ROM normal Extremity: COMMON NORMALS: normal to inspection, full ROM and capillary refill normal LEFT UPPER EXTREMITY: Yes shoulder joint Left shoulder joint: Yes inspection (Normal to inspection), Yes palpation (Diffuse TTP about the shoulder joint), Yes ROM (Exam limited due to patient's pain tolerance), Yes neurovascular exam (Intact) and Yes special tests OTHER: Patient reports pain with all special testing, making examination somewhat unreliable. Neuro: COMMON NORMALS: patient oriented x3, moves all extremities, no focal motor deficits and no sensory deficits noted SENSORIUM/ORIENTATION: Yes oriented to person, Yes oriented to place and Yes oriented to time Psych: COMMON NORMALS: mental status grossly normal and Normal thought process present THOUGHT PROCESS: Normal thought process present Skin: COMMON NORMALS: no rashes or lesions noted GENERAL SKIN EXAM: no rashes or lesions noted Course Vital Signs: Vital signs: Vital Signs Temperature 97.9 F 01/20/24 14:00 Pulse Rate 85 01/20/24 14:00 Respiratory Rate 17 01/20/24 14:00 Blood Pressure 125/81 01/20/24 14:00 Pulse Oximetry 97 01/20/24 14:00 Oxygen Delivery Me thod Room Air 01/20/24 14:00 MDM - Neck Pain/Injury Medical Decision Making This patient was seen and evaluated in the emergency department today for left shoulder pain chronically for the past year but worsened today. Patient was seen 2 weeks ago for the same issue and discharged with muscle laxer. She states. But she ran out of pills. Later pain was worsened after waking up from a nap. On examination, she had limited range of motion in all stevens due to pain. She had diffuse tenderness to palpation over the entire left shoulder joint. All shoulder special testing somewhat limited due to her pain intolerance, but her distal neurovascular exam was negative. Vitals normal. Left shoulder x-ray did not demonstrate any signs of acute fracture, deformity, or chronic degenerative changes. I will treat her left shoulder pain conservatively with p.o. Toradol and instructed her to follow-up with her primary care provider next week for further evaluation as needed. Patient agrees with this plan. Patient discharged home. Medical Records I reviewed the patient's medical records. Lab Data Radiology Impressions Shoulder X-Ray 01/20/24 18:39 IMPRESSION: No acute findings. XR interpretation done by ED provider, pending radiology final review Discharge Plan Discharge Patient Disposition: Home Clinical Impression: Left shoulder pain Qualifiers: Chronicity: chronic Qualified Code(s): M25.512 - Pain in left shoulder Condition: Stable Prescriptions: New ketorolac 10 mg tablet 10 mg PO Q8H PRN (Reason: pain) Qty: 30 0RF No Action fluticasone propionate [Flonase Allergy Relief] 50 mcg/actuation spray,suspension 2 spray intranasal DAILY Qty: 16 3RF Rx Instructions: administer into each nostril valsartan 320 mg tablet 320 mg PO DAILY Qty: 90 1RF albuterol sulfate 90 mcg/actuation HFA aerosol inhaler 1 inh inhalation QID PRN (Reason: shortness of breath or wheezing) Qty: 8.5 3RF fluticasone propion-salmeterol [Advair Diskus] 250-50 mcg/dose blister with device 1 inh inhalation BID Qty: 60 3RF buspirone 10 mg tablet 20 mg PO BID Qty: 240 0RF hydrochlorothiazide 12.5 mg tablet 12.5 mg PO QAM Qty: 90 0RF hydrocodone-acetaminophen 5-325 mg tablet 1 tab PO Q6H PRN (Reason: pain) 30 Days Qty: 120 0RF varenicline [Chantix Continuing Month Box] 1 mg tablet 1 mg PO BID Qty: 56 0RF Celebrex 100 mg capsule 100 mg PO BID Qty: 14 0RF Discharge Orders: Discharge ED (Routine); Ordered 01/20/24 Ordered By: Bereket Gutierrez Referrals: Johny Loomis MD [Primary Care Provider] - Discharge Diet: Usual diet Discharge Activity: Increase activity as tolerated Patient Instructions: Shoulder Pain (ED) Activity Restrictions/Additional Instructions: Toradol as prescribed. Ice as needed. Gently increase range of motion activities as tolerated. Please follow-up with your primary care provider next week for further evaluation. Return with any new or worsening symptoms. Coding Level of Care Code ED Production Support Consultant for Chg Fwd Documented by User: Leo Jordan DO 01/22/24 06:38 HPI - Neck Pain/Injury General: Chief Complaint: Neck Pain/Injury Stated Complaint: shoulder and neck pain Time Seen by Provider: 01/20/24 14:24 PFS ED PFSH: Medical History No pertinent past medical history negxhx: dm,dvt/pe PCP: None H/O thyroid nodule Hypertension History of nonmelanoma skin cancer Chronic back pain Dyspareunia Surgical History Right radial head fracture History of appendectomy with tubal ligation H/O colonoscopy (~2019) Ibrahim: negative History of carpal tunnel surgery of right wrist (~01/2019) Hx of dilation and curettage (~05/13/09) Dysfunctional uterine bleeding. Hysteroscopy D&C. [facility] [place] Re[place]. 1990. D&C. History of salpingectomy (~05/13/09) Left ovarian cyst. Dyspareunia. Laparoscopic LSO, [facility]. [place]. Dr. Reyes History of oophorectomy (~2008) Left History of carpal tunnel surgery of left wrist (~04/2018) History of spinal fusion History of endometrial ablation (~05/13/09) 05/13/2009. Dysfunctional uterine bleeding. Jayne HTA. [facility] [place] Reyes. History of foot surgery (~1977) Right foot, Repaired ligaments and tendons after foot cut. History of tubal ligation (~1994) Family History Father Lung cancer Diabetes Heart disease Hypertension Stroke CAD (coronary artery disease) Cancer melanoma Hyperlipidemia Mother Breast cancer dx age 56 Hypertension Hyperlipidemia Brother Hypertension Sister Hypertension Cancer cervical Denies family history of Colon cancer Ovarian cancer Clotting disorder Hypercholesteremia Psychiatric illness Chronic kidney disease (CKD) Anesthesia complication Bleeding disorder Lung disease Uterine cancer Thyroid disease Social History Smoking and tobacco/nicotine status: current every day tobacco/nicotine user (1 PPD) cigarettes Packs smoked per day: 0.5 [ Other cigarette details: 1PPD, 45PY] Alcohol intake: current Alcohol intake frequency: 3 or more drinks per day Alcohol type: hard liquor Substance/Drug Use: former Date of last use: 1979--history of Cocaine use Lives independently: Yes Marital status: Single Number of children: 1 Current occupational status: unemployed and disabled Agree to transfusion: Yes Course Vital Signs: Vital signs: Vital Signs Temperature 97.9 F 01/20/24 14:00 Pulse Rate 85 01/20/24 14:00 Respiratory Rate 17 01/20/24 14:00 Blood Pressure 125/81 01/20/24 14:00 Pulse Oximetry 97 01/20/24 14:00 Oxygen Delivery Me thod Room Air 01/20/24 14:00 MDM - Neck Pain/Injury Medical Decision Making This patient was seen and evaluated in the emergency department today for left shoulder pain chronically for the past year but worsened today. Patient was seen 2 weeks ago for the same issue and discharged with muscle laxer. She states. But she ran out of pills. Later pain was worsened after waking up from a nap. On examination, she had limited range of motion in all stevens due to pain. She had diffuse tenderness to palpation over the entire left shoulder joint. All shoulder special testing somewhat limited due to her pain intolerance, but her distal neurovascular exam was negative. Vitals normal. Left shoulder x-ray did not demonstrate any signs of acute fracture, deformity, or chronic degenerative changes. I will treat her left shoulder pain conservatively with p.o. Toradol and instructed her to follow-up with her primary care provider next week for further evaluation as needed. Patient agrees with this plan. Patient discharged home. Chart reviewed and patient discussed with midlevel. Agree with assessment and plan. Lab Data Radiology Impressions Shoulder X-Ray 01/20/24 18:39 IMPRESSION: No acute findings. Discharge Plan Discharge Patient Disposition: Home Clinical Impression: Left shoulder pain Qualifiers: Chronicity: chronic Qualified Code(s): M25.512 - Pain in left shoulder Condition: Stable Prescriptions: New ketorolac 10 mg tablet 10 mg PO Q8H PRN (Reason: pain) Qty: 30 0RF No Action fluticasone propionate [Flonase Allergy Relief] 50 mcg/actuation spray,suspension 2 spray intranasal DAILY Qty: 16 3RF Rx Instructions: administer into each nostril valsartan 320 mg tablet 320 mg PO DAILY Qty: 90 1RF albuterol sulfate 90 mcg/actuation HFA aerosol inhaler 1 inh inhalation QID PRN (Reason: shortness of breath or wheezing) Qty: 8.5 3RF fluticasone propion-salmeterol [Advair Diskus] 250-50 mcg/dose blister with device 1 inh inhalation BID Qty: 60 3RF buspirone 10 mg tablet 20 mg PO BID Qty: 240 0RF hydrochlorothiazide 12.5 mg tablet 12.5 mg PO QAM Qty: 90 0RF hydrocodone-acetaminophen 5-325 mg tablet 1 tab PO Q6H PRN (Reason: pain) 30 Days Qty: 120 0RF varenicline [Chantix Continuing Month Box] 1 mg tablet 1 mg PO BID Qty: 56 0RF Celebrex 100 mg capsule 100 mg PO BID Qty: 14 0RF Discharge Orders: Discharge ED (Routine); Ordered 01/20/24 Ordered By: Bereket Gutierrez Referrals: Johny Loomis MD [Primary Care Provider] - Discharge Diet: Usual diet Discharge Activity: Increase activity as tolerated Patient Instructions: Shoulder Pain (ED) Activity Restrictions/Additional Instructions: Toradol as prescribed. Ice as needed. Gently increase range of motion activities as tolerated. Please follow-up with your primary care provider next week for further evaluation. Return with any new or worsening symptoms. Coding Level of Care Code ED Production Support Consultant for Shelbi Thomson
[2024-01-20] MEDS: dexamethasone 10 mg/mL INJ 8 MG IM (18:48)
[2024-01-20] MEDS: ketorolac 60 mg/2 mL INJ IM (18:48)
== END 2024-01-20 21:00 | disposition home or self-care (01) ==
PROVIDERS: Emergency Provider Physician Assistant; PCP Family Medicine
DX: M25.512 Pain in left shoulder (principal); F17.210 Nicotine dependence, cigarettes, uncomplicated; I10 Essential (primary) hypertension
CPT/HCPCS: 73030; 96372; 99284; J1100; J1885

== ENCOUNTER → 2024-02-06 13:36 | Outpatient (BNVA) | payer MEDICAID, SELFPAY | PROVIDERS: PCP Family Medicine; Visit Provider Orthopaedic Surgery | DX: M54.9 Dorsalgia, unspecified (principal); M48.062 Spinal stenosis, lumbar region with neurogenic claudication | CPT/HCPCS: 36415; 80053; 81003; 85025; 99204 ==

== ENCOUNTER 2024-03-04 07:05 | Day surgery (SDC) | payer MEDICAID, SELFPAY ==
[2024-03-04] VITALS (12 sets, daily range): BP systolic 94–136; BP diastolic 52–73; PULSE 68–90; RESP 8–19; TEMP 36.1–36.6; O2SAT 96–100; BMI 25.7
--- NOTE | 2024-03-04 | XR_ITS ---
WS: [id number] Exam: XR lumbar spine 2-3V* [id number] Date/Time of Exam: 03/04/2024 12:00 AM Reason For Exam: HAILY PICS AP intraoperative images of the lower lumbar spine are submitted. Images were obtained for localizati on and preop planning purposes.
--- NOTE | 2024-03-04 07:20 | W.PM.OPSUD ---
Surgery/Procedure H&P Update DATE OF PROCEDURE: March 04, 2024 DATE H&P PERFORMED: 02/27/24 H&P UPDATE INFORMATION: I have reviewed H&P completed within last 30 days, I have examined patient prior to procedure and No changes to prior documentation PREOP DIAGNOSIS: Lumbar stenosis with neurogenic claudication PLANNED PROCEDURE: Operation Date: 03/04/24 12:50 Proposed Procedures p L4-5 L5-S1 Lumbar Spine Decompression(Not Applicable) - Regis Somers DO
[2024-03-04] MEDS: sodium chloride 0.9% 1,000 ML 30 ML IV (07:33)
--- NOTE | 2024-03-04 07:45 | P.ANESASSM_ITS ---
Pre-Anesthetic Assessment Height/Weight: Height 1.55 m Weight 61.689 kg Temp Pulse Resp BP Pulse Ox O2 Del Method 97.8 F 78 18 136/72 96 Room Air 03/04/24 07:24 03/04/24 07:24 03/04/24 07:24 03/04/24 07:24 03/04/24 07:24 03/04/24 07:28 Preop Diagnosis: Lumbar stenosis with neurogenic claudication Operation Date: 03/04/24 12:50 Proposed Procedures p L4-5 L5-S1 Lumbar Spine Decompression(Not Applicable) - Regis Somers, DO Familial anesthetic complications: None Was Beta Roberto taken within 24 hours: N/A Was Clonidine taken within 24 hours: N/A Last intake: Intake Last Liquid Date 03/03/24 Last Liquid Time 23:55 Last Solid Date 03/03/24 Last Solid Time 21:00 Social Tobacco and No alcohol hx ETOH Exam alert, oriented x 3, clear to auscultation bilaterally and regular rate & rhythm Airway Mallampati: Class I Dentition: other (None) Pulmonary Chronic Obstructive Pulmonary Disease CV/HEM Hypertension Anesthetic Plan ASA status: 3 Anesthesia: General Risk of > 500 ml blood loss (7ml/kg in children): No Medications/Allergies Home Medications Medication Instructions Recorded Confirmed Last Taken Type albuterol sulfate 90 mcg/actuation 1 inh inhalation QID PRN shortness 08/09/23 03/01/24 03/03/24 Rx aerosol inhaler of breath or wheezing #8.5 grams buspirone 10 mg tablet 20 mg (2 x 10 mg) PO BID #240 tabs 10/06/23 03/01/24 03/03/24 Rx fluticasone 250 mcg-salmeterol 50 1 inh inhalation BID #60 ea 11/17/23 03/01/24 03/03/24 Rx mcg/dose blistr powdr for inhalation (Advair Diskus) amitriptyline 25 mg tablet 25 mg PO DAILY #30 tabs 01/25/24 03/01/24 03/03/24 Rx hydrochlorothiazide 12.5 mg tablet 12.5 mg PO QAM #90 tabs 02/13/24 03/01/24 Rx varenicline 1 mg tablet (Chantix 1 mg PO BID #56 tabs 02/13/24 03/01/2424 Rx Continuing Month Box) valsartan 320 mg tablet 320 mg PO DAILY #90 tabs 02/21/24 03/01/24 03/03/24 Rx meloxicam 7.5 mg tablet 7.5 mg PO DAILY #30 tabs 02/23/24 03/01/24 02/28/24 Rx hydrocodone 5 mg-acetaminophen 325 1 tab PO Q6H PRN pain 30 days #120 02/28/24 03/01/24 03/03/24 Rx mg tablet tabs fluticasone propionate 50 2 spray intranasal DAILY PRN 03/01/24 03/01/24 Unknown History mcg/actuation nasal Congestion spray,suspension (Flonase Allergy Relief) Allergies Allergy/AdvReac Type Severity Reaction Status Date / Time No Known Allergies Allergy Verified 03/01/24 08:36 Current Medications Generic Name Dose Route Start Last Admin Trade Name Freq PRN Reason Stop Dose Admin Sodium Chloride 1,000 mls @ 30 mls/hr 03/04/24 07:15 03/04/24 07:33 Sodium Chloride 0.9% IV 03/05/24 07:14 30 mls/hr .Q24H TATY Administration PFSH Anesthesia Medical History No pertinent past medical history negxhx: dm,dvt/pe PCP: None H/O thyroid nodule Hypertension History of nonmelanoma skin cancer Chronic back pain Dyspareunia Surgical History Right radial head fracture History of appendectomy with tubal ligation H/O colonoscopy (~2019) Ibrahim: negative History of carpal tunnel surgery of right wrist (~01/2019) Hx of dilation and curettage (~05/13/09) Dysfunctional uterine bleeding. Hysteroscopy D&C. [facility] – [place], [place]. Dr. Reyes. 1990. D&C. History of salpingectomy (~05/13/09) Left ovarian cyst. Dyspareunia. Laparoscopic LSO, [facility]. [facility] [place], [place]. Dr. Reyes History of oophorectomy (~2008) Left History of carpal tunnel surgery of left wrist (~04/2018) History of spinal fusion History of endometrial ablation (~05/13/09) 05/13/2009. Dysfunctional uterine bleeding. Jayne HTA. [facility] [place], [place]. Dr. Reyes. History of foot surgery (~1977) Right foot, Repaired ligaments and tendons after foot cut. History of tubal ligation (~1994) Family History Father Lung cancer Diabetes Heart disease Hypertension Stroke CAD (coronary artery disease) Cancer melanoma Hyperlipidemia Mother Breast cancer dx age 56 Hypertension Hyperlipidemia Brother Hypertension Sister Hypertension Cancer cervical Denies family history of Colon cancer Ovarian cancer Clotting disorder Hypercholesteremia Psychiatric illness Chronic kidney disease (CKD) Anesthesia complication Bleeding disorder Lung disease Uterine cancer Thyroid disease Social History Smoking and tobacco/nicotine status: former use of tobacco/nicotine Alcohol intake: current Alcohol intake frequency: 3 or more drinks per day Alcohol type: hard liquor Substance/Drug Use: former Date of last use: 1979--history of Cocaine use Lives independently: Yes Marital status: Single Number of children: 1 Current occupational status: unemployed and disabled Agree to transfusion: Yes Data Anesthesia Cardiac Studies: No Data to Display
[2024-03-04] MEDS: ceFAZolin 2,000 MG in sodium chloride 0.9% (plus) 50 ML 100 MG IV (07:49)
[2024-03-04] MEDS: lidocaine-epi 1% 20 mL INJ INJECTION (08:25)
--- NOTE | 2024-03-04 09:00 | PM.OP ---
Operative Report Date of procedure: March 04, 2024 Pre-op diagnosis: Lumbar stenosis with neurogenic claudication Post-op diagnosis: same Procedure done: 1. L4-5 laminectomy with partial facetectomy 2. L5-S1 laminectomy with partial facetectomy Surgeon: Regis Somers DO Estimated blood loss (mL): 10 Procedure: 1. L4-5 laminectomy with partial facetectomy 2. L5-S1 laminectomy with partial facetectomy Patient is brought to the operative suite. After undergoing anesthesia they are placed in the prone position. All areas of impingement are well padded. Patient is then prepped and draped in the normal sterile fashion. A skin incision is made over the L4/5 level. This is confirmed under c-arm guidance. A series of dilators are passed and the tubular retractor is docked on the L4 lamina. A bovie is used to clear the soft tissue off the lamina and the L 4/5 facet joint. A high speed althea is then used to perform the laminectomy and take down the medial aspect of the L 4/5 facet joint. A kerrison rongeure was then used to take down the remaining lamina and smooth the edge of the laminectomy up to the point where the ligamentum flavum attaches. Attention was then brought to the medial aspect of the facet joint. The remaining medial aspect of the superior and inferior aspect of the facet joint were taken down with the kerrison from the pedicle of L4 to L 5. The facet joint had significant hypertrophy. Attention was then brought to the Ligamentum Flavum. The ligament was taken down from the lamina of L4 to L5 and out medially to the remaining facet joint. The ligament was thick. The dura was then exposed. The dura was in good repair. The L4 nerve was then traced with a curette out the L4/5 foramen and found to be adequately decompressed. The L5 nerve was traced with a curette around the L5 pedicle. The lateral recess was opened with a kerrison helping to further decompress the L5 nerve. Wound is then irrigated copiously with saline and surgiflo is used to stop any bleeding. The tubular retractor is removed and the A skin incision is made over the L5/S1 level. This is confirmed under c-arm guidance. A series of dilators are passed and the tubular retractor is docked on the L5 lamina. A bovie is used to clear the soft tissue off the lamina and the L5/S1 facet joint. A high speed althea is then used to perform the laminectomy and take down the medial aspect of the L 5/S1 facet joint. A kerrison rongeure was then used to take down the remaining lamina and smooth the edge of the laminectomy up to the point where the ligamentum flavum attaches. Attention was then brought to the medial aspect of the facet joint. The remaining medial aspect of the superior and inferior aspect of the facet joint were taken down with the kerrison from the pedicle of L5 to S1. The facet joint had significant hypertrophy. Attention was then brought to the Ligamentum Flavum. The ligament was taken down from the lamina of L5 to S1 and out medially to the remaining facet joint. The ligament was thick. The dura was then exposed. The dura was in good repair. The L5 nerve was then traced with a curette out the L5/S1 foramen and found to be adequately decompressed. The S1 nerve was traced with a curette around the S1 pedicle. The lateral recess was opened with a kerrison helping to further decompress the S1 nerve. Wound is then irrigated copiously with saline and surgiflo is used to stop any bleeding. The tubular retractor is removed and the wound is closed with vicryl and monocryl suture. Glue is then used to protect the wound. A sterile dressing is then placed. Patient was then placed in the supine position and transferred to the PACU in stable condition.
[2024-03-04] MEDS: fentaNYL 50 mcg/mL INJ 2mL IVP (09:21)
--- NOTE | 2024-03-04 09:30 | PC.NURSE ---
0921 - Fentanyl 50 mcg given IVP per pacu protocol - scanner unable to scan patient - verified pt, , dose, route and medication with Hipolito Stanley RN
[2024-03-04] MEDS: HYDROcodone-acetaminophen 10-325 mg Tablet 1 TAB PO (10:13)
--- NOTE | 2024-03-04 10:25 | ANE.PACU2 ---
Inpatient post-anesthesia follow up: Airway intact: Yes Vital signs: Temperature 97 F Pulse Rate 78 Respiratory Rate 18 Blood Pressure 112/58 Pulse Oximetry 99 Oxygen Delivery Me thod Room Air Oxygen Flow Rate 8 Fraction of Inspir ed Oxygen Hydration adequate: Yes Nausea and vomiting: No Pain level: 1 Mental status: Baseline
== END 2024-03-04 10:24 | disposition home or self-care (01) ==
PROVIDERS: PCP Family Medicine; Visit Provider Orthopaedic Surgery
PROC: (CPT 63005; principal; 2024-03-04 12:50)
DX: M48.062 Spinal stenosis, lumbar region with neurogenic claudication (principal); J44.9 Chronic obstructive pulmonary disease, unspecified; I10 Essential (primary) hypertension; Z87.891 Personal history of nicotine dependence
CPT/HCPCS: 63047; 63048; 72100; 76000; J0690; J2371; J2710; J3010; J3490; J7030

== ENCOUNTER 2024-03-06 07:35 | Emergency (ER) | payer MEDICAID, SELFPAY ==
[2024-03-06 07:42] VITALS: BP 143/59; PULSE 87; TEMP 36.7; O2SAT 95; BMI 25.4
[2024-03-06 07:49] VITALS: BP 143/59; PULSE 86; RESP 18; O2SAT 92
--- NOTE | 2024-03-06 08:20 | ED_ITS ---
HPI - Back Pain/Injury General: Chief Complaint: Back Pain/Injury Stated Complaint: Back Pain Time Seen by Provider: 03/06/24 07:39 Source: patient Mode of arrival: ambulatory History of Present Illness: 58-year-old male presents emergency room with complaint of left leg pain. Patient had back surgery 2 days ago initially the first day postop he did well he was able to ambulate without difficulty. And then this overnight began having left leg radicular pain. No apparent saddle paresthesias no difficulty with bowel or bladder function. No fever sweats or chills. MD elicited complaint: back pain Pertinent past history: prior back pain Onset (ago): day(s) (1) Timing: constant Severity: moderate Quality: sharp Location: lumbar spine Radiation: left upper leg and left leg below the knee Exacerbating factors: movement, sitting upright and walking Relieving factors: none Associated symptoms: Reports other; Deny abdominal pain, arthralgias, chills, change in bowel habits, difficulty walking, dysuria, fatigue, fecal incontinence, fever(s), hematuria, myalgias, nausea, numbness, syncope, tingling/numbness/burning, urinary frequency, urinary urgency, vomiting or weakness Review of Systems Const: Denies: fever(s), chills or fatigue Card: Denies: syncope Resp: Denies: dyspnea GI: Denies: abdominal pain, nausea, vomiting, fecal incontinence or change in bowel habits : Denies: dysuria, urinary urgency or hematuria Musc: Denies: neck pain or back pain Skin/Breast: Denies: rash Neuro: Denies: difficulty walking PFSH ED PFSH: Medical History No pertinent past medical history negxhx: dm,dvt/pe PCP: None H/O thyroid nodule Hypertension History of nonmelanoma skin cancer Chronic back pain Dyspareunia Surgical History Right radial head fracture History of appendectomy with tubal ligation H/O colonoscopy (~2019) Ibrahim: negative History of carpal tunnel surgery of right wrist (~01/2019) Hx of dilation and curettage (~05/13/09) Dysfunctional uterine bleeding. Hysteroscopy D&C. [facility] [place]. Dr. Reyes. 1991. D&C. History of salpingectomy (~05/13/09) Left ovarian cyst. Dyspareunia. Laparoscopic LSO, ALEM. [facility] [place]. Dr. Reyes History of oophorectomy (~2008) Left History of carpal tunnel surgery of left wrist (~04/2018) History of spinal fusion History of endometrial ablation (~05/13/09) 05/13/2009. Dysfunctional uterine bleeding. Jayne HTA. [facility] [place]. Dr. Reyes. History of foot surgery (~1977) Right foot, Repaired ligaments and tendons after foot cut. History of tubal ligation (~1994) Family History Father Lung cancer Diabetes Heart disease Hypertension Stroke CAD (coronary artery disease) Cancer melanoma Hyperlipidemia Mother Breast cancer dx age 56 Hypertension Hyperlipidemia Brother Hypertension Sister Hypertension Cancer cervical Denies family history of Colon cancer Ovarian cancer Clotting disorder Hypercholesteremia Psychiatric illness Chronic kidney disease (CKD) Anesthesia complication Bleeding disorder Lung disease Uterine cancer Thyroid disease Social History Smoking and tobacco/nicotine status: former use of tobacco/nicotine Alcohol intake: current Alcohol intake frequency: 3 or more drinks per day Alcohol type: hard liquor Substance/Drug Use: former Date of last use: 1979--history of Cocaine use Lives independently: Yes Marital status: Single Number of children: 1 Current occupational status: unemployed and disabled Agree to transfusion: Yes Physical Exam Const: GENERAL APPEARANCE: cooperative and comfortable ORIENTATION/CONSCIOUSNESS: Yes awake, Yes oriented to person, Yes oriented to place and Yes oriented to time HENMT: COMMON NORMALS: normocephalic, atraumatic and hearing grossly normal bilaterally HEAD & SCALP: normocephalic and atraumatic Resp: COMMON NORMALS: normal respiratory effort, No retractions, No use of accessory muscles and clear to auscultation bilaterally AUSCULTATION: clear to auscultation bilaterally Cardio: COMMON NORMALS: regular rate, regular rhythm and No murmurs present (Cardio) RATE: regular rate RHYTHM: regular rhythm GI: COMMON NORMALS: Soft to palpation and No hepatosplenomegaly present AUSCULTATION: Yes normoactive bowel sounds PALPATION: Yes Soft to palpation, No Tenderness to palpation present (GI), No Guarding due to palpation present (GI) and Yes No hepatosplenomegaly present Extremity: COMMON NORMALS: normal to inspection, capillary refill normal, no clubbing, cyanosis or edema, no calf tenderness and no pedal edema Neuro: SENSORIUM/ORIENTATION: Yes oriented to person, Yes oriented to place and Yes oriented to time OTHER: Sensation lower extremities bilaterally normal neurovascularly intact in the lower extremities. Degenerative exposed to 4 dorsum plantarflexion 5 of 5 no saddle paresthesias Skin: COMMON NORMALS: no rashes or lesions noted GENERAL SKIN EXAM: no rashes or lesions noted Course Vital Signs: Vital signs: Vital Signs Temperature 98.1 F 03/06/24 07:42 Pulse Rate 91 03/06/24 08:43 Respiratory Rate 18 03/06/24 09:55 Blood Pressure 143/59 03/06/24 08:43 Pulse Oximetry 91 03/06/24 08:43 Oxygen Delivery Me thod Room Air 03/06/24 08:43 MDM - Back Pain/Injury Medical Decision Making Improved with medications given. Believe patient is having postlaminectomy syndrome nerve root irritation likely from the surgery is causing the radicular- like pain. Continue her on hydrocodone start prednisone taper tizanidine at needed the incision itself looks good no sign of infection. Recheck with her surgeon Dr. oSmers in the next week. Return with worsening problems Differential Diagnosis Likely lumbar radiculopathy Medical Records I reviewed the patient's medical records. Labs I reviewed the patient's lab results. All radiology interpretation(s) finalized by discharge Discharge Plan Discharge Patient Disposition: Home Clinical Impression: Lumbar post-laminectomy syndrome Condition: Stable Prescriptions: New tizanidine 4 mg tablet 4 mg PO Q6H PRN (Reason: muscle spasticity) Qty: 20 0RF Rx Instructions: do not exceed 3 doses per 24 hrs prednisone 20 mg tablet 20 mg PO TID Qty: 15 0RF Rx Instructions: 1 p.o. 3 times daily x3 days, 1 p.o. twice daily x2 days, 1 p.o. daily x2 days No Action albuterol sulfate 90 mcg/actuation HFA aerosol inhaler 1 inh inhalation QID PRN (Reason: shortness of breath or wheezing) Qty: 8.5 3RF fluticasone propion-salmeterol [Advair Diskus] 250-50 mcg/dose blister with d evice 1 inh inhalation BID Qty: 60 3RF varenicline [Chantix Continuing Month Box] 1 mg tablet 1 mg PO BID Qty: 56 0RF hydrochlorothiazide 12.5 mg tablet 12.5 mg PO QAM Qty: 90 0RF valsartan 320 mg tablet 320 mg PO DAILY Qty: 90 1RF meloxicam 7.5 mg tablet 7.5 mg PO DAILY Qty: 30 0RF fluticasone propionate [Flonase Allergy Relief] 50 mcg/actuation spray,suspension 2 spray intranasal DAILY PRN (Reason: Allergy Symptoms) Rx Instructions: administer into each nostril hydrocodone-acetaminophen 10-325 mg tablet 1 tab PO Q4H PRN (Reason: pain) 7 Days Qty: 40 0RF hydrocodone-acetaminophen 5-325 mg tablet 1 tab PO Q6H PRN (Reason: Pain) amitriptyline 25 mg tablet 25 mg PO BEDTIME buspirone 10 mg tablet 10 mg PO BID Discharge Orders: Discharge ED (Routine); Ordered 03/06/24 Ordered By: Leo Jordan Referrals: Johny Loomis MD [Primary Care Provider] - Discharge Diet: Usual diet Discharge Activity: Increase activity as tolerated Patient Instructions: Opioid Safety, Pain Management Activity Restrictions/Additional Instructions: Thank you for choosing [facility] for your healthcare needs today. Please realize this is an emergency room and that we are providing you with a medical screening exam and this may not be complete and all inclusive of all the testing and or work up that you may need to determine your ailment or severity of your illness. It is very important that you follow up as instructed or that you return to the Emergency Department should you have concerns or if your condition changes or worsens in any way. You were seen today after your surgery for back pain. There is no signs of infection at your incision site. Recommend adding steroids daily you were given initial dose here he can begin the steroid taper tomorrow. Additionally can use a muscle relaxer. Finally use the previously prescribed hydrocodone. Follow-up with Dr. Somers for further issues with your back. Coding Level of Care Code ED Veterinary Pharmacologist for Shelbi Thomson
[2024-03-06] MEDS: ondansetron 2 mg/ML SDV 2 mL 4 MG IVP (08:31)
[2024-03-06] MEDS: dexamethasone 10 mg/mL INJ IVP (08:32)
[2024-03-06] MEDS: ketorolac 30 mg/mL INJ IVP (08:34)
[2024-03-06] MEDS: morphine 4 mg/mL SDV 1 mL IVP ×2 (08:35→09:55)
[2024-03-06] MEDS: orphenadrine 30 mg/mL Inj 2 mL 60 MG IM (08:37)
[2024-03-06 08:43] VITALS: BP 143/59; PULSE 91; RESP 18; O2SAT 91
--- NOTE | 2024-03-06 09:20 | PC.PHAR ---
pt states she takes care of her own medications-pt states she has both norco 5/325mg one tab po q6h prn filled 02/28/24 30d/s and norco 10/325mg one tab po 4h prn filled 03/04/24 7d/s-
[2024-03-06 09:55] VITALS: RESP 18
== END 2024-03-06 10:58 | disposition home or self-care (01) ==
PROVIDERS: Emergency Provider Family Medicine; PCP Family Medicine
DX: M96.1 Postlaminectomy syndrome, not elsewhere classified (principal); Z87.891 Personal history of nicotine dependence; I10 Essential (primary) hypertension
CPT/HCPCS: 51798; 96372; 96374; 96375; 96376; 99284; J1100; J1885; J2270; J2360; J2405

== ENCOUNTER → 2024-03-14 08:01 | Outpatient (BNVA) | payer MEDICAID, SELFPAY | PROVIDERS: PCP Family Medicine; Visit Provider Orthopaedic Surgery | DX: Z98.890 Other specified postprocedural states (principal) | CPT/HCPCS: 99024 ==

== ENCOUNTER → 2024-04-11 13:25 | Outpatient (BNVA) | payer MEDICAID, SELFPAY | PROVIDERS: PCP Family Medicine; Visit Provider Orthopaedic Surgery | DX: Z98.890 Other specified postprocedural states (principal) | CPT/HCPCS: 99024 ==

== ENCOUNTER → 2024-05-21 10:32 | Outpatient (BNVA) | payer MEDICAID, SELFPAY | PROVIDERS: PCP Family Medicine; Visit Provider Orthopaedic Surgery | DX: Z98.890 Other specified postprocedural states | CPT/HCPCS: 99024 ==

== ENCOUNTER 2024-05-29 21:18 | Emergency (ER) | payer MEDICAID, SELFPAY ==
[2024-05-29 21:19] VITALS: BP 135/73; PULSE 95; RESP 16; TEMP 36.6; O2SAT 94
--- NOTE | 2024-05-29 21:58 | W.ED.EXTPRO ---
HPI - Extremity Problem General: Chief complaint: Extremity Problem,Nontraumatic Stated complaint: Shoulder pain Time Seen by Provider: 05/29/24 21:54 History of Present Illness: 58-year-old female comes in today for complaints of left shoulder pain. Patient reports that she has some pain in her shoulder at times that has waxed and waned for years. Patient has come in for a injection of Toradol which seems to help give her the best relief when she has a flareup. Patient is not requesting a prescription just 1 shot of Toradol so she could get a good night sleep. Patient appears nontoxic. Patient is guarded movement of the shoulder. No redness or inflammation or swelling is noted to the arm distally. Review of Systems General: Reports: 10 or more systems reviewed and unremarkable except in HPI and below Musc: Reports: joint pain PFSH ED PFSH: Medical History No pertinent past medical history negxhx: dm,dvt/pe PCP: None H/O thyroid nodule Hypertension History of nonmelanoma skin cancer Chronic back pain Dyspareunia Surgical History Right radial head fracture History of appendectomy with tubal ligation H/O colonoscopy (~2019) Ibrahim: negative History of carpal tunnel surgery of right wrist (~01/2019) Hx of dilation and curettage (~05/13/09) Dysfunctional uterine bleeding. Hysteroscopy D&C. [facility] [place]. Reyes. 1990. D&C. History of salpingectomy (~05/13/09) Left ovarian cyst. Dyspareunia. Laparoscopic LSO, ALEM. [facility]. Dr. Reyes History of oophorectomy (~2008) Left History of carpal tunnel surgery of left wrist (~04/2018) History of spinal fusion History of endometrial ablation (~05/13/09) 05/13/2009. Dysfunctional uterine bleeding. Jayne HTA. [facility] [place]. Dr. Reyes. History of foot surgery (~1977) Right foot, Repaired ligaments and tendons after foot cut. History of tubal ligation (~1994) Family History Father Lung cancer Diabetes Heart disease Hypertension Stroke CAD (coronary artery disease) Cancer melanoma Hyperlipidemia Mother Breast cancer dx age 56 Hypertension Hyperlipidemia Brother Hypertension Sister Hypertension Cancer cervical Denies family history of Colon cancer Ovarian cancer Clotting disorder Hypercholesteremia Psychiatric illness Chronic kidney disease (CKD) Anesthesia complication Bleeding disorder Lung disease Uterine cancer Thyroid disease Social History Smoking and tobacco/nicotine status: current every day tobacco/nicotine user Alcohol intake: current Alcohol intake frequency: 3 or more drinks per day Alcohol type: hard liquor Substance/Drug Use: former Date of last use: 1979--history of Cocaine use Lives independently: Yes Marital status: Single Number of children: 1 Current occupational status: unemployed and disabled Agree to transfusion: Yes Physical Exam Const: COMMON NORMALS: alert HENMT: COMMON NORMALS: normocephalic HEAD & SCALP: normocephalic Neck/C-Spine: COMMON NORMALS: full ROM CERVICAL SPINE: No Cervical spine tenderness Chest: COMMONS NORMALS: normal inspection of the chest and normal palpation of the breasts BREAST/AXILLA PALPATION: Yes normal palpation of the breasts Resp: COMMON NORMALS: normal respiratory effort and clear to auscultation bilaterally AUSCULTATION: clear to auscultation bilaterally Cardio: COMMON NORMALS: regular rate and regular rhythm RATE: regular rate RHYTHM: regular rhythm Back/Pelvis: COMMON NORMALS: thoracic and lumbar spine normal to inspection Extremity: LEFT UPPER EXTREMITY: Yes shoulder joint (Mild anterior tenderness, positive drop test) Left shoulder joint: Yes ROM Neuro: SENSORIUM/ORIENTATION: Yes alert Skin: COMMON NORMALS: turgor normal GENERAL SKIN EXAM: turgor normal Course Vital Signs: Vital signs: Vital Signs Temperature 97.8 F 05/29/24 21:19 Pulse Rate 95 05/29/24 21:19 Respiratory Rate 16 05/29/24 21:19 Blood Pressure 135/73 05/29/24 21:19 Pulse Oximetry 94 05/29/24 21:19 Oxygen Delivery Me thod Room Air 05/29/24 21:19 MDM - Extremity (Nontraumatic) Medical Decision Making 58-year-old female comes in today for complaints of left shoulder tenderness and pain. On exam patient has some decreased range of motion due to pain. Patient has a positive drop test. Distal pulses and sensation are intact. No swelling or redness is noted. Differential diagnosis includes osteoarthritis, tendinitis, rotator cuff injury. Reviewed exam with patient with recommendations for treatment and follow-up. Patient was given 30 mg of Toradol for her pain and inflammation. Patient will continue with routine medications and follow-up with primary care for further instructions. No radiology studies performed this visit Discharge Plan Discharge Condition: Stable Prescriptions: No Action hydrocodone-acetaminophen 10-325 mg tablet 1 tab PO Q6H MDD 4 PRN (Reason: pain) 30 Days Qty: 120 0RF albuterol sulfate 90 mcg/actuation HFA aerosol inhaler 1 inh inhalation QID PRN (Reason: shortness of breath or wheezing) Qty: 8.5 3RF fluticasone propion-salmeterol [Advair Diskus] 250-50 mcg/dose blister with device 1 inh inhalation BID Qty: 60 3RF amitriptyline 25 mg tablet See Rx Instructions .ROUTE .COMPLEX Qty: 30 2RF Dose Instruction: TAKE 1 TABLET BY MOUTH EVERY DAY Rx Instructions: TAKE 1 TABLET BY MOUTH EVERY DAY varenicline [Chantix Continuing Month Box] 1 mg tablet 1 mg PO BID Qty: 56 0RF valsartan 320 mg tablet 320 mg PO DAILY Qty: 90 1RF fluticasone propionate [Flonase Allergy Relief] 50 mcg/actuation spray,suspension 2 spray intranasal DAILY PRN (Reason: Allergy Symptoms) Qty: 16 1RF Rx Instructions: administer into each nostril meloxicam 7.5 mg tablet See Rx Instructions .ROUTE .COMPLEX Qty: 30 0RF Dose Instruction: TAKE 1 TABLET BY MOUTH EVERY DAY Rx Instructions: TAKE 1 TABLET BY MOUTH EVERY DAY hydrochlorothiazide 12.5 mg tablet See Rx Instructions .ROUTE .COMPLEX Qty: 90 0RF Dose Instruction: TAKE 1 TABLET BY MOUTH EVERY MORNING Rx Instructions: TAKE 1 TABLET BY MOUTH EVERY MORNING buspirone 10 mg tablet 10 mg PO BID tizanidine 4 mg tablet 4 mg PO Q6H PRN (Reason: muscle spasticity) Qty: 20 0RF Rx Instructions: do not exceed 3 doses per 24 hrs Referrals: Johny Loomis MD [Primary Care Provider] - Coding Level of Care Code ED Airplane Flight Attendant Supervisor for Shelbi Thmoson
[2024-05-29] MEDS: ketorolac 30 mg/mL INJ IM (22:09)
[2024-05-29 22:55] VITALS: BP 127/77; PULSE 82; RESP 14
== END 2024-05-29 22:56 | disposition home or self-care (01) ==
PROVIDERS: Emergency Provider Nurse Practitioner Family; PCP Family Medicine
DX: M25.512 Pain in left shoulder (principal)
CPT/HCPCS: 96372; 99284; J1885

== ENCOUNTER 2024-05-30 09:01 | Emergency (ER) | payer MEDICARE, MEDICAID, SELFPAY ==
--- NOTE | 2024-05-30 09:06 | XRR_ITS ---
PROCEDURE INFORMATION: Exam: XR Left Shoulder Exam date and time: 05/30/2024 9:43 AM Age: 58 years old Clinical indication: Pain; Shoulder; Left TECHNIQUE: Imaging protocol: Radiologic exam of the left shoulder. Views: 2 or more views. COMPARISON: CR XR shoulder LT min 2V* [id number] 01/20/2024 7:29 PM FINDINGS: Bones/joints: Normal. No fracture or dislocation. No acute osseous, joint, or soft tissue abnormality. Soft tissues: Normal. XR/XR shoulder LT min 2V* [id number] IMPRESSION: The findings are normal.
[2024-05-30 09:39] VITALS: BP 135/80; PULSE 73; TEMP 36.9; O2SAT 93
--- NOTE | 2024-05-30 09:52 | W.ED.UPPEXIN ---
HPI - Extremity Injury (Upper) General: Chief Complaint: Extremity Problem,Nontraumatic Stated Complaint: left shoulder pain, Time Seen by Provider: 05/30/24 09:05 Source: patient Mode of arrival: ambulatory History of Present Illness: 58-year-old female presents emergency room with complaint of pain in her left shoulder. She was seen yesterday given a shot of Toradol. No trauma or injury states she is chronically had pain in the shoulder for the last couple of years that seem to have worsened lately she does not associate any particular activity trauma fall etc. Earlier this month that she has seen Dr. Somers for back surgery as she had previously was given hydrocodone. She also takes meloxicam. There is no associated chest pain or shortness of breath no neck pain no pain radiating from the neck down into the shoulder and arm MD complaint: injury to: left and shoulder Onset (ago): day(s) Handedness: right Place: home Severity: severe Relieving factors: immobilization and rest Exacerbating factors: movement of extremity Associated symptoms: Denies neck pain Review of Systems Const: Denies: fever(s) or chills Card: Denies: chest pain Resp: Denies: dyspnea GI: Denies: abdominal pain : Denies: dysuria, urinary frequency or urinary urgency Musc: Denies: neck pain or back pain Skin/Breast: Denies: rash PFSH ED PFSH: Medical History No pertinent past medical history negxhx: dm,dvt/pe PCP: None H/O thyroid nodule Hypertension History of nonmelanoma skin cancer Chronic back pain Dyspareunia Surgical History Right radial head fracture History of appendectomy with tubal ligation H/O colonoscopy (~2019) Ibrahim: negative History of carpal tunnel surgery of right wrist (~01/2019) Hx of dilation and curettage (~05/13/09) Dysfunctional uterine bleeding. Hysteroscopy D&C. [facility] [place]. Dr. Reyes. 1990. D&C. History of salpingectomy (~05/13/09) Left ovarian cyst. Dyspareunia. Laparoscopic LSO, ALEM. [facility] [place]. Dr. Reyes History of oophorectomy (~2008) Left History of carpal tunnel surgery of left wrist (~04/2018) History of spinal fusion History of endometrial ablation (~05/13/09) 05/13/2009. Dysfunctional uterine bleeding. Jayne HTA. [facility] [place]. Dr. Reyes. History of foot surgery (~1977) Right foot, Repaired ligaments and tendons after foot cut. History of tubal ligation (~1994) Family History Father Lung cancer Diabetes Heart disease Hypertension Stroke CAD (coronary artery disease) Cancer melanoma Hyperlipidemia Mother Breast cancer dx age 56 Hypertension Hyperlipidemia Brother Hypertension Sister Hypertension Cancer cervical Denies family history of Colon cancer Ovarian cancer Clotting disorder Hypercholesteremia Psychiatric illness Chronic kidney disease (CKD) Anesthesia complication Bleeding disorder Lung disease Uterine cancer Thyroid disease Social History Smoking and tobacco/nicotine status: current every day tobacco/nicotine user Alcohol intake: current Alcohol intake frequency: 3 or more drinks per day Alcohol type: hard liquor Substance/Drug Use: former Date of last use: 1979--history of Cocaine use Lives independently: Yes Marital status: Single Number of children: 1 Current occupational status: unemployed and disabled Agree to transfusion: Yes Physical Exam Const: GENERAL APPEARANCE: cooperative and comfortable ORIENTATION/CONSCIOUSNESS: Yes awake, Yes oriented to person, Yes oriented to place and Yes oriented to time HENMT: COMMON NORMALS: normocephalic, atraumatic and hearing grossly normal bilaterally HEAD & SCALP: normocephalic and atraumatic Resp: COMMON NORMALS: normal respiratory effort, No retractions, No use of accessory muscles and clear to auscultation bilaterally AUSCULTATION: clear to auscultation bilaterally Cardio: COMMON NORMALS: regular rate, regular rhythm and No murmurs present (Cardio) RATE: regular rate RHYTHM: regular rhythm Extremity: OTHER: Examination of the L shoulder patient has pain with abduction positive impingement sign no deformity no palpable crepitus. Neuro: SENSORIUM/ORIENTATION: Yes oriented to person, Yes oriented to place and Yes oriented to time Skin: COMMON NORMALS: no rashes or lesions noted GENERAL SKIN EXAM: no rashes or lesions noted Course Vital Signs: Vital signs: Vital Signs Temperature 98.5 F 05/30/24 09:39 Pulse Rate 73 05/30/24 10:05 Blood Pressure 125/77 05/30/24 10:05 Pulse Oximetry 96 05/30/24 10:05 Oxygen Delivery Me thod Room Air 05/30/24 10:05 MDM - Extremity Injury (Upper) Medical Decision Making X-ray does not show any acute fracture to no dislocation no significant subluxation. Suspect patient has a tendon arthropathy may have a rotator cuff tear. At this point she will need to be further evaluated in outpatient setting given IV steroids today discharged home with steroid taper to start tomorrow she can use meloxicam hydrocodone previously prescribed she was placed in a sling. She is also advised to contact Dr. Somers's office to reevaluate particularly for the shoulder Medical Records I reviewed the patient's medical records. Lab Data I reviewed the patient's lab results. Radiology Impressions Shoulder X-Ray 05/30/24 09:06 IMPRESSION: The findings are normal. All radiology interpretation(s) finalized by discharge Discharge Plan Discharge Patient Disposition: Home Clinical Impression: Arthropathy of left shoulder Condition: Stable Prescriptions: New prednisone 20 mg tablet 20 mg PO TID Qty: 15 0RF Rx Instructions: 1 p.o. 3 times daily x3 days, 1 p.o. twice daily x2 days, 1 p.o. daily x2 days No Action hydrocodone-acetaminophen 10-325 mg tablet 1 tab PO Q6H MDD 4 PRN (Reason: pain) 30 Days Qty: 120 0RF albuterol sulfate 90 mcg/actuation HFA aerosol inhaler 1 inh inhalation QID PRN (Reason: shortness of breath or wheezing) Qty: 8.5 3RF fluticasone propion-salmeterol [Advair Diskus] 250-50 mcg/dose blister with device 1 inh inhalation BID Qty: 60 3RF amitriptyline 25 mg tablet See Rx Instructions .ROUTE .COMPLEX Qty: 30 2RF Dose Instruction: TAKE 1 TABLET BY MOUTH EVERY DAY Rx Instructions: TAKE 1 TABLET BY MOUTH EVERY DAY varenicline [Chantix Continuing Month Box] 1 mg tablet 1 mg PO BID Qty: 56 0RF valsartan 320 mg tablet 320 mg PO DAILY Qty: 90 1RF fluticasone propionate [Flonase Allergy Relief] 50 mcg/actuation spray,suspension 2 spray intranasal DAILY PRN (Reason: Allergy Symptoms) Qty: 16 1RF Rx Instructions: administer into each nostril meloxicam 7.5 mg tablet See Rx Instructions .ROUTE .COMPLEX Qty: 30 0RF Dose Instruction: TAKE 1 TABLET BY MOUTH EVERY DAY Rx Instructions: TAKE 1 TABLET BY MOUTH EVERY DAY hydrochlorothiazide 12.5 mg tablet See Rx Instructions .ROUTE .COMPLEX Qty: 90 0RF Dose Instruction: TAKE 1 TABLET BY MOUTH EVERY MORNING Rx Instructions: TAKE 1 TABLET BY MOUTH EVERY MORNING buspirone 10 mg tablet 10 mg PO BID tizanidine 4 mg tablet 4 mg PO Q6H PRN (Reason: muscle spasticity) Qty: 20 0RF Rx Instructions: do not exceed 3 doses per 24 hrs Discharge Orders: Discharge ED (Routine); Ordered 05/30/24 Ordered By: Leo Jordan Referrals: Johny Loomis MD [Primary Care Provider] - Discharge Diet: Usual diet Discharge Activity: Limit activity as instructed Patient Instructions: Opioid Safety, Pain Management Activity Restrictions/Additional Instructions: Thank you for choosing [facility] for your healthcare needs today. It is very important that you follow up as instructed or that you return to the Emergency Department should you have concerns or if your condition changes or worsens in any way. You are seen today for your chronic left shoulder pain. You are given a shot of steroids and a steroid oral taper to begin tomorrow. You can continue to use the previously prescribed medications such as the hydrocodone Dr. Somers recently prescribed you or the meloxicam that Dr. Higginbotham has prescribed in the past. Contact Dr. Somers's office for further evaluation. Coding Level of Care Code ED Ship Boat Or Barge Mate for Shelbi Thomson
[2024-05-30] MEDS: dexamethasone 10 mg/mL INJ IM (10:03)
[2024-05-30 10:05] VITALS: BP 125/77; PULSE 73; O2SAT 96
[2024-05-30 10:28] VITALS: BP 135/82; PULSE 77; O2SAT 96
== END 2024-05-30 10:35 | disposition home or self-care (01) ==
PROVIDERS: Emergency Provider Family Medicine; PCP Family Medicine
DX: M12.812 Other specific arthropathies, not elsewhere classified, left shoulder (principal); I10 Essential (primary) hypertension; F17.210 Nicotine dependence, cigarettes, uncomplicated; Z79.899 Other long term (current) drug therapy
CPT/HCPCS: 73030; 96372; 99284; J1100

== ENCOUNTER → 2024-06-17 12:47 | Outpatient (BNVA) | payer MEDICARE, MEDICAID, SELFPAY | PROVIDERS: PCP Family Medicine; Visit Provider Podiatrist Foot & Ankle Surgery | DX: M79.671 Pain in right foot (principal); M79.672 Pain in left foot | CPT/HCPCS: 73630; 99203 ==

== ENCOUNTER → 2024-07-15 13:27 | Outpatient (BNVA) | payer MEDICARE, MEDICAID, SELFPAY | PROVIDERS: PCP Family Medicine; Visit Provider Podiatrist Foot & Ankle Surgery | DX: G62.9 Polyneuropathy, unspecified (principal); M79.671 Pain in right foot; M79.672 Pain in left foot | CPT/HCPCS: 99213 ==

== ENCOUNTER → 2024-07-24 15:37 | Outpatient (BNVA) | payer MEDICARE, MEDICAID, SELFPAY | PROVIDERS: PCP Family Medicine; Visit Provider Family Medicine | DX: R53.83 Other fatigue (principal); D50.9 Iron deficiency anemia, unspecified | CPT/HCPCS: 82728; 83550; 85025 ==

== ENCOUNTER → 2024-07-30 14:21 | Outpatient (BNVA) | payer MEDICARE, MEDICAID, SELFPAY | PROVIDERS: PCP Family Medicine; Visit Provider Nurse Practitioner Family | DX: L57.0 Actinic keratosis (principal); L82.0 Inflamed seborrheic keratosis; L72.11 Pilar cyst; L70.8 Other acne; L82.1 Other seborrheic keratosis; Z85.828 Personal history of other malignant neoplasm of skin | CPT/HCPCS: 17000; 17110; 99213 ==

== ENCOUNTER → 2024-08-21 12:57 | Outpatient (BNVA) | payer MEDICARE, MEDICAID, SELFPAY | PROVIDERS: PCP Family Medicine; Visit Provider Dermatology | DX: D48.5 Neoplasm of uncertain behavior of skin (principal) | CPT/HCPCS: 11422; 13121 ==

== ENCOUNTER → 2024-12-27 15:23 | Outpatient (BNVA) | payer MEDICARE, MEDICAID, SELFPAY | PROVIDERS: PCP Family Medicine; Visit Provider Emergency Medicine | DX: R63.5 Abnormal weight gain (principal); R06.02 Shortness of breath; F33.2 Major depressive disorder, recurrent severe without psychotic features | CPT/HCPCS: 71046; 80053; 85025 ==

== ENCOUNTER → 2025-01-27 15:40 | Outpatient (BNVA) | payer MEDICARE, MEDICAID, SELFPAY | PROVIDERS: PCP Family Medicine; Visit Provider Nurse Practitioner Family | DX: L23.9 Allergic contact dermatitis, unspecified cause (principal); L81.4 Other melanin hyperpigmentation; D22.39 Melanocytic nevi of other parts of face; Z08 Encounter for follow-up examination after completed treatment for malignant neoplasm; Z85.828 Personal history of other malignant neoplasm of skin; L82.0 Inflamed seborrheic keratosis; Z78.9 Other specified health status; L53.8 Other specified erythematous conditions; R20.8 Other disturbances of skin sensation | CPT/HCPCS: 17110; 99213 ==

== ENCOUNTER 2025-02-12 13:29 | Outpatient (CLI) | payer MEDICARE, MEDICAID, SELFPAY ==
--- NOTE | 2025-02-12 13:40 | MM_ITS ---
WS: [id number] BILATERAL 3D TOMOSYNTHESIS DIGITAL SCREENING MAMMOGRAPHY WITH CAD CLINICAL INFORMATION: screening HISTORY: Screening mammogram. No current complaints. COMPARISON: 2022 TECHNIQUE: Bilateral CC and MLO views. FINDINGS: The breasts are composed of heterogeneous fibroglandular density tissue, which can limit the detection of small underlying mass lesions. No suspicious mass, asymmetry, calcifications, or architectural distortion. No evidence of malignancy. Biopsy clip RIGHT breast MM/MM scr BI tomosynthesis [id number] IMPRESSION: DENSITY: The breasts are heterogeneously dense, which may obscure small masses. BI-RADS: 2 - Benign FOLLOW UP: 1 Year Follow-up Recommend return to annual screening mammography.
== END 2025-02-12 13:30 | disposition home or self-care (01) ==
PROVIDERS: PCP Family Medicine; Visit Provider Family Medicine
DX: Z12.31 Encounter for screening mammogram for malignant neoplasm of breast (principal); R92.333 Mammographic heterogeneous density, bilateral breasts
CPT/HCPCS: 77063; 77067

== ENCOUNTER → 2025-08-05 12:56 | Outpatient (BNVA) | payer MEDICARE, MEDICAID, SELFPAY | PROVIDERS: PCP Family Medicine; Visit Provider Nurse Practitioner Family | DX: L72.0 Epidermal cyst (principal); L57.8 Other skin changes due to chronic exposure to nonionizing radiation; Z08 Encounter for follow-up examination after completed treatment for malignant neoplasm; Z85.828 Personal history of other malignant neoplasm of skin; L82.0 Inflamed seborrheic keratosis; R20.8 Other disturbances of skin sensation; L53.8 Other specified erythematous conditions; D48.5 Neoplasm of uncertain behavior of skin | CPT/HCPCS: 11102; 17110; 99213 ==